=== PATIENT | female | born 1940 | race Caucasian/White ===

== ENCOUNTER 2017-03-30 12:44 | Emergency (ER) | payer MEDICARE, OTHER ==
[~2017-03-30] VITALS: Ht 162.6 cm; Wt 56.9 kg
[2017-03-30] MEDS ORDERED: SING5CHW23 PO (13:03)
[2017-03-30] MEDS ORDERED: METO-398 PO (13:03)
[2017-03-30] MEDS ORDERED: NIFE1TAB PO (13:03)
[2017-03-30] MEDS ORDERED: XARE20TA PO (13:03)
[2017-03-30] MEDS ORDERED: FURO40TA2 PO (13:03)
[2017-03-30] MEDS ORDERED: FAMO20TA PO (13:03)
[2017-03-30] MEDS ORDERED: LISI40TAB PO (13:03)
[2017-03-30] MEDS ORDERED: METF500T13 PO (13:03)
[2017-03-30] MEDS ORDERED: LEVO25TA5 PO (13:03)
[2017-03-30] MEDS ORDERED: GABA-283 PO (13:03)
[2017-03-30] MEDS ORDERED: NITR0.4D TD (13:05)
[2017-03-30] MEDS ORDERED: ECOT81TA5 PO (13:05)
[2017-03-30] MEDS ORDERED: PRAV40TA2 PO (13:05)
[2017-03-30 13:55] LABS: VENOUS BASE EXCESS 1.9 (-2.0-2.0); VENOUS O2 SATURATION 89.7 % (60.0-80.0); VENOUS PARTIAL PRESSURE O2 58.4 mmHg (30.0-50.0); VENOUS STANDARD HCO3 25.9 MEQ/L; VENOUS TOTAL CO2 29.4 MEQ/L (24.0-28.0)
[2017-03-30 14:03] LABS: BASO % 0.4 % (0.0-1.0); EOS # 0.2 K/mm3 (0.0-0.50); EOS % 2.9 % (0.0-3.0); LARGE UNSTAINED CELL # 0.1 K/mm3 (0.0-0.4); LARGE UNSTAINED CELL % 2.7 % (0.0-4.0); LYMPH # 2.2 K/mm3 (1.5-4.5); LYMPH % 38.9 % (24.0-44.0); MEAN CORPUSCULAR HEMOGLOBIN 31.4 pg (27.0-33.0); MEAN CORPUSCULAR HGB CONC 34.6 g/dl (32.0-36.5); MEAN CORPUSCULAR VOLUME 90.7 fl (80.0-96.0); MONO # 0.4 K/mm3 (0.0-0.8); MONO % 7.9 % (0.0-5.0); NEUTROPHILS # 2.5 K/mm3 (1.8-7.7); NEUTROPHILS % 47.2 % (36.0-66.0); PLATELET COUNT, AUTOMATED 278 k/mm3 (150-450); RED CELL DISTRIBUTION WIDTH 12.4 % (11.5-14.5); WHITE BLOOD COUNT 5.2 K/mm3 (4.0-10.0)
[2017-03-30 14:03] LABS: INR 1.23
[2017-03-30 14:17] LABS: ALBUMIN 3.9 GM/DL (3.2-5.2); ALBUMIN/GLOBULIN RATIO 1.05 (1.00-1.93); ALKALINE PHOSPHATASE 75 U/L (45-117); ALT/SGPT 15 U/L (12-78); ANION GAP 8 MEQ/L (8-16); AST/SGOT 16 U/L (15-37); BILIRUBIN,DIRECT 0.2 MG/DL (0.0-0.2); BILIRUBIN,TOTAL 0.8 MG/DL (0.2-1.0); BLOOD UREA NITROGEN 16 MG/DL (7-18); CARBON DIOXIDE LEVEL 31 MEQ/L (21-32); CHLORIDE LEVEL 102 MEQ/L (98-107); CREATININE FOR GFR 0.98 MG/DL (0.55-1.02); GLOMERULAR FILTRATION RATE 58.6 (>39); GLUCOSE, FASTING 95 MG/DL (83-110); POTASSIUM SERUM 3.7 MEQ/L (3.5-5.1); SODIUM LEVEL 141 MEQ/L (136-145); TOTAL PROTEIN 7.6 GM/DL (6.4-8.2)
--- NOTE | 2017-03-30 14:27 | REP ---
PA and lateral chest: There are no comparisons. Lung christensen are clear. Cardiac size is normal. There are sternotomy wires and there is a dual-chamber pacemaker. The loi, mediastinum, and bony thorax are unremarkable. Impression: There are no acute cardiopulmonary findings. Signed by Mikel Calderon MD 03/30/2017 02:19 P
[2017-03-30] MEDS ORDERED: GI COCKTAIL 50ML BTL(HYOSCYAMINE/MAALOX/LIDOCAINE VISCOUS)(1:3:1) PO ONE (15:00)
[2017-03-30] MEDS ORDERED: LEVS0.123 PO (16:01)
[2017-03-30 16:14] VITALS: BP 142/78
--- NOTE | 2017-03-31 07:34 | ECGEPIP ---
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
== END 2017-03-30 17:00 | disposition home or self-care (01) ==
LOC: M ED 14:23
DX: R07.89 Other chest pain (principal); R06.02 Shortness of breath; E11.9 Type 2 diabetes mellitus without complications; I10 Essential (primary) hypertension; E78.5 Hyperlipidemia, unspecified; E03.9 Hypothyroidism, unspecified; I25.2 Old myocardial infarction; Z95.0 Presence of cardiac pacemaker; Z95.1 Presence of aortocoronary bypass graft; Z79.899 Other long term (current) drug therapy; Z79.82 Long term (current) use of aspirin; Z79.01 Long term (current) use of anticoagulants; Z79.84 Long term (current) use of oral hypoglycemic drugs; Z88.1 Allergy status to other antibiotic agents; Z88.2 Allergy status to sulfonamides; Z88.5 Allergy status to narcotic agent; Z91.048 Other nonmedicinal substance allergy status

== ENCOUNTER 2018-04-26 16:38 | Emergency (ER) | payer MEDICARE, OTHER ==
[2018-04-26 17:36] LABS: BASO % 0.3 % (0.0-1.0); EOS # 0.2 10^3/uL (0.0-0.50); EOS % 3.3 % (0.0-3.0); HEMATOCRIT 35.6 % (36.0-47.0); HEMOGLOBIN 12.1 g/dl (12.0-15.5); IMMATURE GRANULOCYTE % 0.2 % (0-3.0); LYMPH # 2.5 10^3/uL (1.5-4.5); LYMPH % 39.1 % (24.0-44.0); MEAN CORPUSCULAR HEMOGLOBIN 31.1 pg (27.0-33.0); MEAN CORPUSCULAR VOLUME 91.5 fl (80.0-96.0); MONO # 0.7 10^3/uL (0.0-0.8); MONO % 10.9 % (0.0-5.0); NEUTROPHILS % 46.2 % (36.0-66.0); PLATELET COUNT, AUTOMATED 272 10^3/uL (150-450); RED BLOOD COUNT 3.89 10^6/uL (4.00-5.40); RED CELL DISTRIBUTION WIDTH 12.5 % (11.5-14.5); WHITE BLOOD COUNT 6.4 10^3/uL (4.0-10.0)
[2018-04-26 17:47] LABS: INR 1.31; PROTHROMBIN TIME 16.5 SECONDS (12.1-14.4)
[2018-04-26 17:48] LABS: PARTIAL THROMBOPLASTIN TIME 33.8 SECONDS (25.4-37.6)
[2018-04-26 17:50] LABS: ALBUMIN 3.3 GM/DL (3.2-5.2); ALBUMIN/GLOBULIN RATIO 0.75 (1.00-1.93); ALKALINE PHOSPHATASE 73 U/L (45-117); ALT/SGPT 24 U/L (12-78); ANION GAP 4 MEQ/L (8-16); AST/SGOT 56 U/L (7-37); BILIRUBIN,DIRECT < 0.1 MG/DL (0.0-0.2); BILIRUBIN,TOTAL 0.4 MG/DL (0.2-1.0); BLOOD UREA NITROGEN 16 MG/DL (7-18); C REACTIVE PROTEIN QUANTITATIV < 0.30 MG/DL (0.00-0.30); CALCIUM LEVEL 8.3 MG/DL (8.8-10.2); CARBON DIOXIDE LEVEL 30 MEQ/L (21-32); CHLORIDE LEVEL 104 MEQ/L (98-107); CPK CREATINE PHOSPHOKINASE 340 U/L (26-192); CREATININE FOR GFR 1.01 MG/DL (0.55-1.30); FREE T4 1.19 NG/DL (0.76-1.46); GLOMERULAR FILTRATION RATE 56.4 (>39); GLUCOSE, FASTING 118 MG/DL (70-100); POTASSIUM SERUM 4.6 MEQ/L (3.5-5.1); SODIUM LEVEL 138 MEQ/L (136-145); TOTAL PROTEIN 7.7 GM/DL (6.4-8.2); TROPONIN I < 0.02 NG/ML (< 0.10)
[2018-04-26 17:56] LABS: CK-MB VALUE MASS 2.6 NG/ML (<3.6); MB/CK RELATIVE INDEX 0.76 (< OR =4); NT-PRO BNP 829 PG/ML (<450); THYROID STIMULATING HORMONE 0.256 uIU/ML (0.358-3.740)
== END 2018-04-26 19:41 | disposition home or self-care (01) ==
LOC: M ED 16:38
DX: R07.89 Other chest pain (principal); I25.10 Atherosclerotic heart disease of native coronary artery without angina pectoris; E11.9 Type 2 diabetes mellitus without complications; J44.9 Chronic obstructive pulmonary disease, unspecified; M06.9 Rheumatoid arthritis, unspecified; E03.9 Hypothyroidism, unspecified; I69.351 Hemiplegia and hemiparesis following cerebral infarction affecting right dominant side; G62.9 Polyneuropathy, unspecified; M19.90 Unspecified osteoarthritis, unspecified site; Z95.1 Presence of aortocoronary bypass graft; Z95.0 Presence of cardiac pacemaker; Z88.2 Allergy status to sulfonamides; Z88.5 Allergy status to narcotic agent; Z88.8 Allergy status to other drugs, medicaments and biological substances; Z91.81 History of falling
CPT/HCPCS: 71250

== ENCOUNTER → 2019-05-02 | Outpatient (CLI) | payer MEDICARE, OTHER ==
[~2019-05-02] MED LIST: ECOT81TA5 PO; FAMO20TA PO; FURO40TA2 PO; GABA-845 PO; K-TA10TA2 PO; LEVO25TA5 PO; LEVS0.123 PO; LISI40TA PO; METF500T13 PO; METO200T28 PO; NIFE90TA20 PO; NITR0.4D10 TD; OMEP20CA4 PO; PRAV40TA2 PO; SING5CHW23 PO; XARE20TA PO
[2019-05-02 13:08] LABS: HEMATOCRIT 35.5 % (36.0-47.0); MEAN CORPUSCULAR HEMOGLOBIN 30.5 pg (27.0-33.0); MEAN CORPUSCULAR HGB CONC 33.8 g/dl (32.0-36.5); MEAN CORPUSCULAR VOLUME 90.1 fl (80.0-96.0); PLATELET COUNT, AUTOMATED 253 10^3/uL (150-450); RED BLOOD COUNT 3.94 10^6/uL (4.00-5.40); WHITE BLOOD COUNT 5.2 10^3/uL (4.0-10.0)
[2019-05-02 13:43] LABS: ALBUMIN 3.7 GM/DL (3.2-5.2); BILIRUBIN,TOTAL 0.6 MG/DL (0.2-1.0); CALCIUM LEVEL 9.1 MG/DL (8.8-10.2); CHOLESTEROL RISK RATIO 3.5 (<5); CREATININE FOR GFR 1.11 MG/DL (0.55-1.30); GLOMERULAR FILTRATION RATE 50.5 (>39); THYROID STIMULATING HORMONE 1.63 uIU/ML (0.358-3.740); TOTAL 25(OH) VITAMIN D 111.4 NG/ML (30.0-100.0); TOTAL PROTEIN 7.2 GM/DL (6.4-8.2)
== END ==
LOC: M LAB 12:01
PROVIDERS: ATTEND Family Medicine
DX: D64.9 Anemia, unspecified (principal); Z79.899 Other long term (current) drug therapy

== ENCOUNTER 2023-02-14 15:50 | Inpatient (IN) | payer MEDICARE ==
[~2023-02-14] VITALS: Ht 167.6 cm; Wt 64.1 kg
[~2023-02-14 15:50] MED LIST changes: +GABA-283 PO; -GABA-845 PO; -LISI40TA PO; +LISI40TA4 PO; +OMEP1CAP73 PO; -OMEP20CA4 PO
[2023-02-14] MEDS ORDERED: BACITRACIN OINTMENT 30GM TUBE TOP ONE (19:30)
[2023-02-14 19:34] LABS: BASO % 0.3 % (0.0-1.0); EOS # 0.1 10^3/uL (0.0-0.5); EOS % 2.1 % (0.0-3.0); HEMATOCRIT 34.8 % (36.0-47.0); HEMOGLOBIN 11.3 g/dl (12.0-15.5); LYMPH % 29.1 % (24.0-44.0); MEAN CORPUSCULAR HEMOGLOBIN 28.5 pg (27.0-33.0); MEAN CORPUSCULAR HGB CONC 32.5 g/dl (32.0-36.5); MEAN CORPUSCULAR VOLUME 87.7 fl (80.0-96.0); MONO # 0.6 10^3/uL (0.0-0.8); MONO % 9.4 % (2.0-8.0); NEUTROPHILS # 3.9 10^3/uL (1.5-8.5); NEUTROPHILS % 58.8 % (36.0-66.0); PLATELET COUNT, AUTOMATED 194 10^3/uL (150-450); RED BLOOD COUNT 3.97 10^6/uL (4.00-5.40); WHITE BLOOD COUNT 6.7 10^3/uL (4.0-10.0)
[2023-02-14 19:54] LABS: INR 1.66; PROTHROMBIN TIME 19.9 SECONDS (12.5-14.5)
[2023-02-14 19:55] LABS: PARTIAL THROMBOPLASTIN TIME 37.7 SECONDS (24.8-34.2)
[2023-02-14 20:07] LABS: CALCIUM LEVEL 8.2 MG/DL (8.3-10.6); CREATININE FOR GFR 1.51 MG/DL (0.55-1.30); POTASSIUM SERUM 3.9 MMOL/L (3.5-5.1)
[2023-02-14 21:52] LABS: RSV AMPLIFICATION NEGATIVE (NEGATIVE)
[2023-02-15] VITALS (8 sets, daily range): BP systolic 104–202; BP diastolic 51–90
[2023-02-15] MEDS ORDERED: amLODIPine 5 MG TAB PO ONE (02:25)
[2023-02-15] MEDS ORDERED: MOM 30ML SUSPENSION UDC PO PRN (02:35)
[2023-02-15] MEDS: ACETAMINOPHEN TAB 650MG DOSE (2X325MG) PO PRN ×3 (03:38→21:45)
[2023-02-15] MEDS ORDERED: GLUCAGON INJ 1MG VIAL SC PRN (04:35)
[2023-02-15] MEDS ORDERED: GLUCOSE 4GM CHEW TABLET PO PRN (04:35)
[2023-02-15] MEDS ORDERED: DEXTROSE 50% 50ML SYRINGE IV PRN (04:35)
[2023-02-15] MEDS ORDERED: LABETALOL 100MG/20ML VIAL IV PRN (05:05)
[2023-02-15 06:15] LABS: HEMATOCRIT 32.4 % (36.0-47.0); HEMOGLOBIN 10.4 g/dl (12.0-15.5); MEAN CORPUSCULAR HGB CONC 32.1 g/dl (32.0-36.5); MEAN CORPUSCULAR VOLUME 87.1 fl (80.0-96.0); PLATELET COUNT, AUTOMATED 185 10^3/uL (150-450); RED BLOOD COUNT 3.72 10^6/uL (4.00-5.40); WHITE BLOOD COUNT 6.4 10^3/uL (4.0-10.0)
[2023-02-15] MEDS: LEVOTHYROXINE 88MCG TABLET (0.088 MG) PO SCH (06:35)
[2023-02-15 06:44] LABS: CALCIUM LEVEL 8.7 MG/DL (8.3-10.6); CREATININE FOR GFR 1.33 MG/DL (0.55-1.30); GLOMERULAR FILTRATION RATE 40.6 (>32); MAGNESIUM LEVEL 1.9 MG/DL (1.8-2.4); POTASSIUM SERUM 3.9 MMOL/L (3.5-5.1)
[2023-02-15] MEDS ORDERED: RIVAROXABAN 10MG TAB (XARELTO) PO SCH (09:00)
[2023-02-15] MEDS ORDERED: amLODIPine 5 MG TAB PO SCH (09:00)
[2023-02-15] MEDS ORDERED: RIVAROXABAN 15MG TAB (XARELTO) PO SCH (09:00)
[2023-02-15] MEDS ORDERED: TAMSULOSIN 0.4 MG CAP PO SCH (09:00)
[2023-02-15] MEDS: INSULIN LISPRO (NovoLOG) PER UNIT SC SCH ×4 (09:19→20:04)
[2023-02-15] MEDS: ENTRESTO 49-51MG TABLET (SACUBITRIL/VALSARTAN) PO SCH ×2 (09:19→21:41)
[2023-02-15] MEDS: ASPIRIN 81MG ENTERIC TABLET PO SCH (09:19)
[2023-02-15] MEDS: GABAPENTIN 300 MG CAP PO SCH ×3 (09:19→21:41)
[2023-02-15] MEDS ORDERED: FURO20TA2 PO (14:09)
[2023-02-15] MEDS ORDERED: LEVO88TA24 PO (14:09)
[2023-02-15] MEDS ORDERED: ATOR40TA75 PO (14:09)
[2023-02-15] MEDS ORDERED: SPIR-10 PO (14:09)
[2023-02-15] MEDS ORDERED: ENTR1TAB7 PO (14:09)
[2023-02-15] MEDS ORDERED: PANT-23 PO (14:09)
[2023-02-15] MEDS ORDERED: XARE15TA PO (14:09)
[2023-02-15] MEDS ORDERED: GABA-282 PO (14:09)
[2023-02-15] MEDS ORDERED: ISOS1TAB35 PO (14:09)
[2023-02-15] MEDS ORDERED: MONT10TA97 PO (14:09)
[2023-02-15] MEDS ORDERED: FLOM0.4C39 PO (14:09)
[2023-02-15] MEDS ORDERED: RANO500T2 PO (14:09)
[2023-02-15] MEDS: SODIUM CHLORIDE NASAL 0.65% SPRAY BTL (OCEAN) PRN ×2 (15:01→16:57)
[2023-02-15] MEDS: guaiFENesin 200 MG TAB PO PRN (15:01)
[2023-02-15] MEDS: traMADol 50 MG TAB PO PRN ×2 (15:02→23:06)
[2023-02-15] MEDS ORDERED: NITR4TASL SL (15:17)
[2023-02-15] MEDS ORDERED: CYAN100050 PO (15:17)
[2023-02-15] MEDS ORDERED: POTA-298 PO (15:17)
[2023-02-15] MEDS ORDERED: FLON1SPR NARES (15:17)
[2023-02-15] MEDS ORDERED: VITA100093 PO (15:17)
[2023-02-15] MEDS ORDERED: ZINC220CA PO (15:17)
[2023-02-15] MEDS ORDERED: FLUTICASONE PROP 0.05% NASAL SPRAY 16 GM (FLONASE) NARES PRN (15:25)
[2023-02-15] MEDS ORDERED: TRAD5TAB PO (15:34)
[2023-02-15] MEDS ORDERED: GLIP5TAB PO (15:34)
[2023-02-15] MEDS ORDERED: HOME MED LIST COMPLETE! XX SCH (15:35)
[2023-02-15] MEDS: FUROSEMIDE 20 MG TAB PO SCH (16:56)
[2023-02-15] MEDS ORDERED: RANOLAZINE 500MG ER TAB PO SCH (21:00)
[2023-02-15] MEDS ORDERED: ISOSORBIDE MON. (IMDUR) 30MG XR TAB PO SCH (21:00)
[2023-02-15] MEDS: ATORVASTATIN 20 MG TAB PO SCH (21:41)
[2023-02-15] MEDS: MONTELUKAST 10 MG TAB PO SCH (21:41)
[2023-02-15] MEDS: PANTOPRAZOLE 40MG TAB (PROTONIX) PO SCH (21:41)
[2023-02-16] VITALS (18 sets, daily range): BP systolic 80–136; BP diastolic 44–66
[2023-02-16] MEDS: bisoproloL fumarate 5 MG TAB PO SCH ×3 (00:01→20:55)
[2023-02-16] MEDS: LEVOTHYROXINE 88MCG TABLET (0.088 MG) PO SCH (05:16)
[2023-02-16 08:06] LABS: BASO % 0.3 % (0.0-1.0); EOS # 0.1 10^3/uL (0.0-0.5); EOS % 1.8 % (0.0-3.0); HEMATOCRIT 30.7 % (36.0-47.0); HEMOGLOBIN 9.9 g/dl (12.0-15.5); LYMPH # 1.5 10^3/uL (1.5-5.0); LYMPH % 19.9 % (24.0-44.0); MEAN CORPUSCULAR HEMOGLOBIN 27.9 pg (27.0-33.0); MEAN CORPUSCULAR HGB CONC 32.2 g/dl (32.0-36.5); MEAN CORPUSCULAR VOLUME 86.5 fl (80.0-96.0); MONO # 0.7 10^3/uL (0.0-0.8); MONO % 9.5 % (2.0-8.0); NEUTROPHILS # 5.1 10^3/uL (1.5-8.5); NEUTROPHILS % 68.1 % (36.0-66.0); PLATELET COUNT, AUTOMATED 177 10^3/uL (150-450); RED BLOOD COUNT 3.55 10^6/uL (4.00-5.40); WHITE BLOOD COUNT 7.4 10^3/uL (4.0-10.0)
[2023-02-16 08:21] LABS: ALBUMIN 2.9 G/DL (3.2-5.2); BILIRUBIN,TOTAL 0.6 MG/DL (0.3-1.2); CALCIUM LEVEL 8.4 MG/DL (8.3-10.6); CREATININE FOR GFR 1.29 MG/DL (0.55-1.30); MAGNESIUM LEVEL 1.8 MG/DL (1.8-2.4); POTASSIUM SERUM 4.1 MMOL/L (3.5-5.1); TOTAL PROTEIN 5.2 G/DL (5.7-8.2)
[2023-02-16] MEDS: FUROSEMIDE 20 MG TAB PO SCH ×3 (09:00→17:31)
[2023-02-16] MEDS ORDERED: FLUBLOK(EGG FREE)(QUAD)INFLUENZA VACC 0.5ML SYRINGE 18YRS & OLDER IM.IMMUN ONE (09:00)
[2023-02-16] MEDS: SPIRONOLACTONE 25 MG TAB PO SCH (09:00)
[2023-02-16] MEDS ORDERED: METOPROLOL SUCC (TopROL XL) 100MG *XL* TAB PO SCH (09:00)
[2023-02-16] MEDS: INSULIN LISPRO (NovoLOG) PER UNIT SC SCH ×4 (09:49→20:55)
[2023-02-16] MEDS: ASPIRIN 81MG ENTERIC TABLET PO SCH (10:05)
[2023-02-16] MEDS: GABAPENTIN 300 MG CAP PO SCH ×3 (10:05→20:54)
[2023-02-16] MEDS: VITAMIN D 1,000 INTERNATIONAL UNITS TABLET PO SCH (10:05)
[2023-02-16] MEDS: AMIODARONE 200 MG TAB (PACERONE) PO SCH ×3 (10:06→20:55)
[2023-02-16] MEDS: PANTOPRAZOLE 40MG TAB (PROTONIX) PO SCH ×2 (10:06→20:54)
[2023-02-16] MEDS: traMADol 50 MG TAB PO PRN ×2 (12:25→21:37)
[2023-02-16] MEDS ORDERED: guaiFENesin 200 MG TAB PO PRN (18:55)
[2023-02-16] MEDS ORDERED: LEVALBUTEROL 1.25MG 0.5ML CONCENTRATE NEB INH PRN (18:55)
[2023-02-16] MEDS: LEVALBUTEROL 1.25MG 0.5ML CONCENTRATE NEB INH SCH (20:00)
[2023-02-16] MEDS: MONTELUKAST 10 MG TAB PO SCH (20:54)
[2023-02-16] MEDS: ATORVASTATIN 20 MG TAB PO SCH (20:54)
[2023-02-17] MEDS: LEVALBUTEROL 1.25MG 0.5ML CONCENTRATE NEB INH SCH ×2 (01:13→08:04)
[2023-02-17 03:51] VITALS: BP 136/65
[2023-02-17] MEDS: LEVOTHYROXINE 88MCG TABLET (0.088 MG) PO SCH (05:36)
[2023-02-17] MEDS: traMADol 50 MG TAB PO PRN ×2 (05:38→13:41)
[2023-02-17 06:42] LABS: BASO % 0.3 % (0.0-1.0); EOS # 0.4 10^3/uL (0.0-0.5); EOS % 5.5 % (0.0-3.0); HEMATOCRIT 32.4 % (36.0-47.0); HEMOGLOBIN 10.4 g/dl (12.0-15.5); LYMPH # 1.5 10^3/uL (1.5-5.0); LYMPH % 19.5 % (24.0-44.0); MEAN CORPUSCULAR HEMOGLOBIN 27.9 pg (27.0-33.0); MEAN CORPUSCULAR HGB CONC 32.1 g/dl (32.0-36.5); MEAN CORPUSCULAR VOLUME 86.9 fl (80.0-96.0); MONO # 0.8 10^3/uL (0.0-0.8); MONO % 10.8 % (2.0-8.0); NEUTROPHILS # 4.7 10^3/uL (1.5-8.5); NEUTROPHILS % 63.6 % (36.0-66.0); PLATELET COUNT, AUTOMATED 175 10^3/uL (150-450); RED BLOOD COUNT 3.73 10^6/uL (4.00-5.40); WHITE BLOOD COUNT 7.4 10^3/uL (4.0-10.0)
[2023-02-17 07:01] LABS: ALBUMIN 2.7 G/DL (3.2-5.2); ALKALINE PHOSPHATASE 76 U/L (46-116); ALT/SGPT < 9 U/L (7.0-40); AST/SGOT 12 U/L (<34); BILIRUBIN,TOTAL 0.7 MG/DL (0.3-1.2); BLOOD UREA NITROGEN 13 MG/DL (9-23); CALCIUM LEVEL 8.5 MG/DL (8.3-10.6); CARBON DIOXIDE LEVEL 30 MMOL/L (20-31); CHLORIDE LEVEL 102 MMOL/L (98-107); CREATININE FOR GFR 1.27 MG/DL (0.55-1.30); GLOMERULAR FILTRATION RATE 42.8 (>32); GLUCOSE, FASTING 137 MG/DL (74-106); MAGNESIUM LEVEL 1.6 MG/DL (1.8-2.4); POTASSIUM SERUM 3.9 MMOL/L (3.5-5.1); SODIUM LEVEL 138 MMOL/L (136-145); TOTAL PROTEIN 5.3 G/DL (5.7-8.2)
[2023-02-17 07:21] VITALS: BP 125/61
[2023-02-17] MEDS ORDERED: MAGNESIUM OXIDE 400MG TAB (MAG-OX) PO ONE (07:25)
[2023-02-17] MEDS: FUROSEMIDE 20 MG TAB PO SCH ×2 (09:00→17:00)
[2023-02-17] MEDS: SPIRONOLACTONE 25 MG TAB PO SCH (09:00)
[2023-02-17] MEDS: INSULIN LISPRO (NovoLOG) PER UNIT SC SCH ×4 (09:27→21:00)
[2023-02-17] MEDS: AMIODARONE 200 MG TAB (PACERONE) PO SCH ×3 (09:38→22:08)
[2023-02-17] MEDS: GABAPENTIN 300 MG CAP PO SCH ×3 (09:38→22:08)
[2023-02-17] MEDS: ACETAMINOPHEN TAB 650MG DOSE (2X325MG) PO PRN (09:39)
[2023-02-17] MEDS: ASPIRIN 81MG ENTERIC TABLET PO SCH (09:39)
[2023-02-17] MEDS: bisoproloL fumarate 5 MG TAB PO SCH ×2 (09:39→22:09)
[2023-02-17] MEDS: SODIUM CHLORIDE NASAL 0.65% SPRAY BTL (OCEAN) PRN (09:40)
[2023-02-17] MEDS: VITAMIN D 1,000 INTERNATIONAL UNITS TABLET PO SCH (09:40)
[2023-02-17] MEDS: guaiFENesin 200 MG TAB PO PRN (09:40)
[2023-02-17] MEDS: PANTOPRAZOLE 40MG TAB (PROTONIX) PO SCH ×2 (09:40→22:08)
[2023-02-17 11:41] VITALS: BP 130/61
[2023-02-17] MEDS ORDERED: LEVALBUTEROL 1.25MG/3ML NEB SOLN INH PRN (13:30)
[2023-02-17] MEDS: LEVALBUTEROL 1.25MG/3ML NEB SOLN INH SCH ×2 (13:46→20:23)
[2023-02-17 16:22] VITALS: BP 109/56
[2023-02-17 19:34] VITALS: BP 123/60
[2023-02-17] MEDS: ATORVASTATIN 20 MG TAB PO SCH (22:08)
[2023-02-17] MEDS: MONTELUKAST 10 MG TAB PO SCH (22:08)
[2023-02-17 23:48] VITALS: BP 129/62
[2023-02-18] MEDS: traMADol 50 MG TAB PO PRN ×3 (00:08→21:43)
[2023-02-18] MEDS: LEVALBUTEROL 1.25MG/3ML NEB SOLN INH SCH ×4 (02:30→20:09)
[2023-02-18 03:40] VITALS: BP 124/61
[2023-02-18] MEDS: LEVOTHYROXINE 88MCG TABLET (0.088 MG) PO SCH (05:39)
[2023-02-18 07:32] VITALS: BP 144/65
[2023-02-18 07:36] LABS: BASO % 0.3 % (0.0-1.0); EOS # 0.3 10^3/uL (0.0-0.5); EOS % 4.8 % (0.0-3.0); HEMATOCRIT 29.4 % (36.0-47.0); HEMOGLOBIN 9.6 g/dl (12.0-15.5); LYMPH # 1.6 10^3/uL (1.5-5.0); LYMPH % 23.3 % (24.0-44.0); MEAN CORPUSCULAR HEMOGLOBIN 28.8 pg (27.0-33.0); MEAN CORPUSCULAR HGB CONC 32.7 g/dl (32.0-36.5); MEAN CORPUSCULAR VOLUME 88.3 fl (80.0-96.0); MONO # 0.7 10^3/uL (0.0-0.8); MONO % 10.8 % (2.0-8.0); NEUTROPHILS % 60.4 % (36.0-66.0); PLATELET COUNT, AUTOMATED 153 10^3/uL (150-450); RED BLOOD COUNT 3.33 10^6/uL (4.00-5.40); WHITE BLOOD COUNT 6.7 10^3/uL (4.0-10.0)
[2023-02-18 07:37] LABS: ALBUMIN 2.7 G/DL (3.2-5.2); BILIRUBIN,TOTAL 0.6 MG/DL (0.3-1.2); CALCIUM LEVEL 8.3 MG/DL (8.3-10.6); CREATININE FOR GFR 1.28 MG/DL (0.55-1.30); GLOMERULAR FILTRATION RATE 42.4 (>32); MAGNESIUM LEVEL 1.7 MG/DL (1.8-2.4); POTASSIUM SERUM 3.9 MMOL/L (3.5-5.1); TOTAL PROTEIN 5.2 G/DL (5.7-8.2)
[2023-02-18] MEDS: INSULIN LISPRO (NovoLOG) PER UNIT SC SCH ×4 (08:11→20:41)
[2023-02-18] MEDS: GABAPENTIN 300 MG CAP PO SCH ×3 (08:12→20:46)
[2023-02-18] MEDS: FUROSEMIDE 20 MG TAB PO SCH ×2 (08:12→16:16)
[2023-02-18] MEDS: ASPIRIN 81MG ENTERIC TABLET PO SCH (08:12)
[2023-02-18] MEDS: SPIRONOLACTONE 25 MG TAB PO SCH (08:12)
[2023-02-18] MEDS: PANTOPRAZOLE 40MG TAB (PROTONIX) PO SCH ×2 (08:12→20:46)
[2023-02-18] MEDS: bisoproloL fumarate 5 MG TAB PO SCH ×2 (08:13→20:47)
[2023-02-18] MEDS: AMIODARONE 200 MG TAB (PACERONE) PO SCH ×3 (08:13→20:46)
[2023-02-18] MEDS: VITAMIN D 1,000 INTERNATIONAL UNITS TABLET PO SCH (08:13)
[2023-02-18] MEDS ORDERED: DOXYCYCLINE HYCLATE 100MG TABLET PO SCH (09:00)
[2023-02-18] MEDS ORDERED: FUROSEMIDE 20 MG TAB PO SCH (10:50)
[2023-02-18] MEDS ORDERED: MAGNESIUM OXIDE 400MG TAB (MAG-OX) PO ONE (10:50)
[2023-02-18 11:27] VITALS: BP 132/61
[2023-02-18] MEDS ORDERED: cefTRIAXone SOD 2 GM in D5W MINI-BAG PLUS 50 ML IV SCH (14:00)
[2023-02-18 16:00] VITALS: BP 127/60
[2023-02-18] MEDS: DOXYCYCLINE HYCLATE 100MG TABLET PO SCH (16:16)
[2023-02-18 19:50] VITALS: BP 143/65
[2023-02-18] MEDS: ATORVASTATIN 20 MG TAB PO SCH (20:46)
[2023-02-18] MEDS: ACETAMINOPHEN TAB 650MG DOSE (2X325MG) PO PRN (20:47)
[2023-02-18] MEDS: MONTELUKAST 10 MG TAB PO SCH (20:47)
[2023-02-18 21:15] VITALS: BP 138/58
[2023-02-18] MEDS: ONDANSETRON 4MG 2ML VIAL IV PRN (23:15)
[2023-02-19] MEDS: LEVALBUTEROL 1.25MG/3ML NEB SOLN INH SCH ×4 (02:38→20:27)
[2023-02-19] MEDS: LEVOTHYROXINE 88MCG TABLET (0.088 MG) PO SCH (05:35)
[2023-02-19 05:45] VITALS: BP_SYST 128; BP_SYST 163; BP_DIAS 66; BP_DIAS 80
[2023-02-19 06:31] LABS: BASO % 0.2 % (0.0-1.0); EOS # 0.3 10^3/uL (0.0-0.5); EOS % 5.1 % (0.0-3.0); HEMATOCRIT 29.8 % (36.0-47.0); HEMOGLOBIN 9.4 g/dl (12.0-15.5); LYMPH # 1.9 10^3/uL (1.5-5.0); LYMPH % 29.2 % (24.0-44.0); MEAN CORPUSCULAR HEMOGLOBIN 27.9 pg (27.0-33.0); MEAN CORPUSCULAR HGB CONC 31.5 g/dl (32.0-36.5); MEAN CORPUSCULAR VOLUME 88.4 fl (80.0-96.0); MONO # 0.7 10^3/uL (0.0-0.8); MONO % 10.2 % (2.0-8.0); NEUTROPHILS # 3.5 10^3/uL (1.5-8.5); NEUTROPHILS % 54.8 % (36.0-66.0); PLATELET COUNT, AUTOMATED 196 10^3/uL (150-450); RED BLOOD COUNT 3.37 10^6/uL (4.00-5.40); WHITE BLOOD COUNT 6.4 10^3/uL (4.0-10.0)
[2023-02-19 07:16] LABS: BILIRUBIN,TOTAL 0.5 MG/DL (0.3-1.2); CREATININE FOR GFR 1.24 MG/DL (0.55-1.30); MAGNESIUM LEVEL 1.9 MG/DL (1.8-2.4); POTASSIUM SERUM 4.6 MMOL/L (3.5-5.1); TOTAL PROTEIN 5.8 G/DL (5.7-8.2)
[2023-02-19] MEDS: GABAPENTIN 300 MG CAP PO SCH ×3 (08:02→20:40)
[2023-02-19] MEDS: INSULIN LISPRO (NovoLOG) PER UNIT SC SCH ×4 (08:02→20:38)
[2023-02-19] MEDS: bisoproloL fumarate 5 MG TAB PO SCH ×2 (08:02→20:40)
[2023-02-19] MEDS: FUROSEMIDE 20 MG TAB PO SCH ×2 (08:02→16:06)
[2023-02-19] MEDS: SPIRONOLACTONE 25 MG TAB PO SCH (08:03)
[2023-02-19] MEDS: traMADol 50 MG TAB PO PRN ×2 (08:03→16:07)
[2023-02-19] MEDS: PANTOPRAZOLE 40MG TAB (PROTONIX) PO SCH ×2 (08:03→20:41)
[2023-02-19] MEDS: VITAMIN D 1,000 INTERNATIONAL UNITS TABLET PO SCH (08:03)
[2023-02-19] MEDS: DOXYCYCLINE HYCLATE 100MG TABLET PO SCH (08:03)
[2023-02-19] MEDS: AMIODARONE 200 MG TAB (PACERONE) PO SCH ×3 (08:03→20:40)
[2023-02-19] MEDS: ASPIRIN 81MG ENTERIC TABLET PO SCH (08:03)
[2023-02-19] MEDS ORDERED: LEVALBUTEROL 1.25MG/3ML NEB SOLN INH PRN (10:00)
[2023-02-19 14:00] VITALS: BP 133/60
[2023-02-19] MEDS: ONDANSETRON 4MG 2ML VIAL IV PRN (14:44)
[2023-02-19] MEDS: ONDANSETRON 4MG ORAL DISINTEGRATING TAB PO PRN (15:21)
[2023-02-19 16:06] VITALS: BP 142/64
[2023-02-19] MEDS ORDERED: ONDANSETRON 4MG ORAL DISINTEGRATING TAB PO ONE (16:50)
[2023-02-19] MEDS ORDERED: PILL CUTTER 1 EACH XX PRN (16:55)
[2023-02-19] MEDS: MONTELUKAST 10 MG TAB PO SCH (20:39)
[2023-02-19] MEDS: ATORVASTATIN 20 MG TAB PO SCH (20:40)
[2023-02-20] MEDS: LEVALBUTEROL 1.25MG/3ML NEB SOLN INH SCH ×4 (01:51→19:57)
[2023-02-20 05:56] VITALS: BP 136/57
[2023-02-20] MEDS: LEVOTHYROXINE 88MCG TABLET (0.088 MG) PO SCH (06:23)
[2023-02-20] MEDS: traMADol 50 MG TAB PO PRN ×2 (06:28→21:11)
[2023-02-20] MEDS: INSULIN LISPRO (NovoLOG) PER UNIT SC SCH ×4 (07:30→21:00)
[2023-02-20] MEDS: ACETAMINOPHEN TAB 650MG DOSE (2X325MG) PO PRN (09:40)
[2023-02-20] MEDS: PANTOPRAZOLE 40MG TAB (PROTONIX) PO SCH ×2 (09:40→21:16)
[2023-02-20] MEDS: bisoproloL fumarate 5 MG TAB PO SCH ×2 (09:40→21:10)
[2023-02-20] MEDS: ASPIRIN 81MG ENTERIC TABLET PO SCH (09:40)
[2023-02-20] MEDS: GABAPENTIN 300 MG CAP PO SCH ×3 (09:40→21:12)
[2023-02-20] MEDS: SPIRONOLACTONE 25 MG TAB PO SCH (09:41)
[2023-02-20] MEDS: VITAMIN D 1,000 INTERNATIONAL UNITS TABLET PO SCH (09:41)
[2023-02-20] MEDS: FUROSEMIDE 20 MG TAB PO SCH ×2 (09:41→16:16)
[2023-02-20] MEDS: AMIODARONE 200 MG TAB (PACERONE) PO SCH ×3 (09:41→21:10)
[2023-02-20] MEDS: ONDANSETRON 4MG ORAL DISINTEGRATING TAB PO PRN (11:33)
[2023-02-20] MEDS: MONTELUKAST 10 MG TAB PO SCH (21:10)
[2023-02-20] MEDS: ATORVASTATIN 20 MG TAB PO SCH (21:12)
[2023-02-21] MEDS: LEVALBUTEROL 1.25MG/3ML NEB SOLN INH SCH ×3 (02:59→13:37)
[2023-02-21 04:53] VITALS: BP 125/66
[2023-02-21] MEDS: LEVOTHYROXINE 88MCG TABLET (0.088 MG) PO SCH (05:15)
[2023-02-21 05:18] VITALS: BP 125/66
[2023-02-21] MEDS: traMADol 50 MG TAB PO PRN ×2 (05:18→14:05)
[2023-02-21] MEDS: INSULIN LISPRO (NovoLOG) PER UNIT SC SCH ×2 (09:25→13:14)
[2023-02-21] MEDS: PANTOPRAZOLE 40MG TAB (PROTONIX) PO SCH (09:26)
[2023-02-21] MEDS: SPIRONOLACTONE 25 MG TAB PO SCH (09:26)
[2023-02-21 09:27] VITALS: BP 137/53
[2023-02-21] MEDS: ASPIRIN 81MG ENTERIC TABLET PO SCH (09:27)
[2023-02-21] MEDS: AMIODARONE 200 MG TAB (PACERONE) PO SCH (09:27)
[2023-02-21] MEDS: VITAMIN D 1,000 INTERNATIONAL UNITS TABLET PO SCH (09:27)
[2023-02-21] MEDS: GABAPENTIN 300 MG CAP PO SCH (09:27)
[2023-02-21] MEDS: bisoproloL fumarate 5 MG TAB PO SCH (09:27)
[2023-02-21] MEDS: FUROSEMIDE 20 MG TAB PO SCH (09:27)
[2023-02-21] MEDS: guaiFENesin 200 MG TAB PO PRN (09:34)
[2023-02-21] MEDS ORDERED: GUAI20TA PO (13:13)
[2023-02-21] MEDS: ACETAMINOPHEN TAB 650MG DOSE (2X325MG) PO PRN (14:03)
[2023-02-21] MEDS ORDERED: ACET1TAB55 PO (14:24)
[2023-02-21] MEDS ORDERED: TRAM50TA2 PO (14:24)
== END 2023-02-21 14:56 | disposition home or self-care (01) | DRG 312 ==
LOC: M ED 15:50 → ENRESERV 22:12 → M ED INP 02-15 02:32 → ENRESERV 02-15 03:51 → M PCU 02-15 04:40 → M MSPAV 02-18 21:13
PROVIDERS: ADMIT Internal Medicine; ATTEND Family Medicine
PROC: B246ZZZ Ultrasonography of Right and Left Heart (ICD-10-PCS; principal; 2023-02-15)
DX: I95.1 Orthostatic hypotension (principal); J12.9 Viral pneumonia, unspecified; I50.32 Chronic diastolic (congestive) heart failure; N17.9 Acute kidney failure, unspecified; I38 Endocarditis, valve unspecified; J98.11 Atelectasis; I25.5 Ischemic cardiomyopathy; I16.0 Hypertensive urgency; I25.10 Atherosclerotic heart disease of native coronary artery without angina pectoris; E78.5 Hyperlipidemia, unspecified; J98.4 Other disorders of lung; E11.42 Type 2 diabetes mellitus with diabetic polyneuropathy; I48.0 Paroxysmal atrial fibrillation; E03.9 Hypothyroidism, unspecified; B34.8 Other viral infections of unspecified site; I11.0 Hypertensive heart disease with heart failure; M54.9 Dorsalgia, unspecified; G89.29 Other chronic pain; R29.6 Repeated falls; Z95.5 Presence of coronary angioplasty implant and graft; Z95.2 Presence of prosthetic heart valve; Z95.810 Presence of automatic (implantable) cardiac defibrillator; Z86.718 Personal history of other venous thrombosis and embolism; Z90.49 Acquired absence of other specified parts of digestive tract; Z90.79 Acquired absence of other genital organ(s); Z79.84 Long term (current) use of oral hypoglycemic drugs; Z79.890 Hormone replacement therapy; Z79.82 Long term (current) use of aspirin; Z79.899 Other long term (current) drug therapy; Z88.2 Allergy status to sulfonamides; Z88.5 Allergy status to narcotic agent; Z88.8 Allergy status to other drugs, medicaments and biological substances; Z20.822 Contact with and (suspected) exposure to COVID-19; K21.9 Gastro-esophageal reflux disease without esophagitis

== ENCOUNTER → 2023-02-26 | Outpatient (CLI) | payer MEDICAID, MEDICARE ==
[~2023-02-26] MED LIST changes: +ACET1TAB55 PO; +ATOR40TA75 PO; +CYAN100050 PO; +ENTR1TAB7 PO; +FLOM0.4C39 PO; +FLON1SPR NARES; +FURO20TA2 PO; +GABA-282 PO; +GLIP5TAB PO; +GUAI20TA PO; +ISOS1TAB35 PO; +LEVO88TA24 PO; +MONT10TA97 PO; +NITR4TASL SL; +PANT-23 PO; +POTA-298 PO; +RANO500T2 PO; +SPIR-10 PO; +TRAD5TAB PO; +TRAM50TA2 PO; +VITA100093 PO; +XARE15TA PO; +ZINC220CA PO
== END ==
LOC: M PLALAB 10:57
PROVIDERS: ATTEND Student in an Organized Health Care Education/Training Program
DX: Z86.39 Personal history of other endocrine, nutritional and metabolic disease (principal)

== ENCOUNTER 2023-04-07 14:04 | Inpatient (IN) | payer MEDICARE ==
[~2023-04-07] VITALS: Ht 162.6 cm; Wt 64.0 kg
[~2023-04-07 14:04] MED LIST changes: +CYAN-1 PO; -CYAN100050 PO; -K-TA10TA2 PO; -NIFE90TA20 PO; +NIFE90TA46 PO; +POTA-165 PO
[2023-04-07] MEDS ORDERED: ASPIRIN 81MG CHEW TABLET PO ONE (15:30)
[2023-04-07 16:08] LABS: BASO % 0.6 % (0.0-1.0); EOS # 0.2 10^3/uL (0.0-0.5); EOS % 2.8 % (0.0-3.0); HEMATOCRIT 32.4 % (36.0-47.0); HEMOGLOBIN 10.1 g/dl (12.0-15.5); LYMPH # 1.6 10^3/uL (1.5-5.0); LYMPH % 28.9 % (24.0-44.0); MEAN CORPUSCULAR HEMOGLOBIN 27.4 pg (27.0-33.0); MEAN CORPUSCULAR HGB CONC 31.2 g/dl (32.0-36.5); MEAN CORPUSCULAR VOLUME 87.8 fl (80.0-96.0); MONO # 0.6 10^3/uL (0.0-0.8); MONO % 10.7 % (2.0-8.0); NEUTROPHILS # 3.1 10^3/uL (1.5-8.5); NEUTROPHILS % 56.6 % (36.0-66.0); PLATELET COUNT, AUTOMATED 219 10^3/uL (150-450); RED BLOOD COUNT 3.69 10^6/uL (4.00-5.40); WHITE BLOOD COUNT 5.4 10^3/uL (4.0-10.0)
[2023-04-07 16:27] LABS: INR 1.49; PROTHROMBIN TIME 18.3 SECONDS (12.5-14.5)
[2023-04-07 16:28] LABS: PARTIAL THROMBOPLASTIN TIME 35.6 SECONDS (24.8-34.2)
[2023-04-07 16:31] LABS: BLOOD UREA NITROGEN 20 MG/DL (9-23); CARBON DIOXIDE LEVEL 28 MMOL/L (20-31); CHLORIDE LEVEL 105 MMOL/L (98-107); CK-MB VALUE MASS < 1.0 NG/ML (<3.6); CREATININE FOR GFR 1.69 MG/DL (0.55-1.30); GLOMERULAR FILTRATION RATE 30.8 (>32); GLUCOSE, FASTING 164 MG/DL (74-106); SODIUM LEVEL 139 MMOL/L (136-145)
[2023-04-07 16:36] LABS: CPK CREATINE PHOSPHOKINASE 50 U/L (34-145)
[2023-04-07 17:01] LABS: RSV AMPLIFICATION NEGATIVE (NEGATIVE)
[2023-04-07] MEDS ORDERED: MED REC IN PROGRESS XX SCH (17:25)
[2023-04-07 20:00] VITALS: BP 164/77; TEMP 97.9; TEMP 98.1; O2SAT 93
[2023-04-07 20:37] LABS: CK-MB VALUE MASS 1.2 NG/ML (<3.6); HEMOGLOBIN A1c 7.1 % (4.0-6.0)
[2023-04-07 20:40] LABS: MB/CK RELATIVE INDEX 3.52 (< OR =4)
[2023-04-07] MEDS: INSULIN LISPRO (NovoLOG) PER UNIT SC SCH (21:00)
[2023-04-07 23:52] VITALS: BP 143/67; TEMP 96.7; O2SAT 98
[2023-04-08] VITALS (10 sets, daily range): BP systolic 101–150; BP diastolic 53–69; TEMP 96.9–98.3; O2SAT 95–98
[2023-04-08] MEDS ORDERED: LORA-674 PO (00:32)
[2023-04-08] MEDS ORDERED: ONDA4TAB6 PO (00:32)
[2023-04-08] MEDS ORDERED: TRAM50TA2 PO (00:32)
[2023-04-08] MEDS ORDERED: AMLO1TAB24 PO (00:32)
[2023-04-08] MEDS ORDERED: ALBU2.5V10 INH (00:32)
[2023-04-08] MEDS ORDERED: XARE15TA PO (00:32)
[2023-04-08] MEDS ORDERED: SYMB16INH INH (00:32)
[2023-04-08] MEDS ORDERED: VITMTA PO (00:32)
[2023-04-08] MEDS ORDERED: ANOR1AER INH (00:32)
[2023-04-08] MEDS ORDERED: ALBU8.5H INH (00:32)
[2023-04-08] MEDS ORDERED: HOME MED LIST COMPLETE! XX SCH (00:35)
[2023-04-08] MEDS ORDERED: FLUTICASONE PROP 0.05% NASAL SPRAY 16 GM (FLONASE) NARES PRN (02:15)
[2023-04-08] MEDS ORDERED: ALBUTEROL SULFATE 2.5MG/0.5ML INH NEB SOLN INH PRN (02:15)
[2023-04-08 06:33] LABS: HEMATOCRIT 31.5 % (36.0-47.0); HEMOGLOBIN 10.2 g/dl (12.0-15.5); MEAN CORPUSCULAR HEMOGLOBIN 27.8 pg (27.0-33.0); MEAN CORPUSCULAR HGB CONC 32.4 g/dl (32.0-36.5); MEAN CORPUSCULAR VOLUME 85.8 fl (80.0-96.0); PLATELET COUNT, AUTOMATED 224 10^3/uL (150-450); RED BLOOD COUNT 3.67 10^6/uL (4.00-5.40); WHITE BLOOD COUNT 5.2 10^3/uL (4.0-10.0)
[2023-04-08] MEDS: LEVOTHYROXINE 88MCG TABLET (0.088 MG) PO SCH (06:53)
[2023-04-08 06:58] LABS: CALCIUM LEVEL 9.1 MG/DL (8.3-10.6); CHOLESTEROL RISK RATIO 2.37 (<5); CREATININE FOR GFR 1.31 MG/DL (0.55-1.30); GLOMERULAR FILTRATION RATE 41.3 (>32); HDL CHOLESTEROL 57.7 MG/DL (>40); LDL CHOLESTEROL 57.9 MG/DL (<100); NON-HDL-C 79.3 MG/DL; POTASSIUM SERUM 4.1 MMOL/L (3.5-5.1)
[2023-04-08] MEDS: INSULIN LISPRO (NovoLOG) PER UNIT SC SCH ×4 (07:30→20:32)
[2023-04-08] MEDS ORDERED: POTASSIUM CHLORIDE 10MEQ SR TABLET PO SCH (09:00)
[2023-04-08] MEDS: NITROGLYCERIN 0.4MG SUBL TABLET SL PRN (09:45)
[2023-04-08] MEDS ORDERED: MAALOX 30 ML SUSP *UDC PO ONE (09:55)
[2023-04-08] MEDS: ONDANSETRON 4MG 2ML VIAL IV SCH ×3 (09:59→21:43)
[2023-04-08] MEDS: ASPIRIN 81MG ENTERIC TABLET PO SCH (10:18)
[2023-04-08] MEDS: ACETAMINOPHEN TAB 650MG DOSE (2X325MG) PO PRN ×2 (10:19→21:18)
[2023-04-08] MEDS: TAMSULOSIN 0.4 MG CAP PO SCH (10:19)
[2023-04-08] MEDS: ISOSORBIDE MON. (IMDUR) 30MG XR TAB PO SCH ×2 (10:19→20:36)
[2023-04-08] MEDS: GABAPENTIN 300 MG CAP PO SCH ×3 (10:20→20:35)
[2023-04-08] MEDS: RANOLAZINE 500MG ER TAB PO SCH ×2 (10:20→20:35)
[2023-04-08] MEDS: METOPROLOL SUCC (TopROL XL) 100MG *XL* TAB PO SCH (10:20)
[2023-04-08] MEDS: PANTOPRAZOLE 40MG TAB (PROTONIX) PO SCH ×2 (10:20→20:35)
[2023-04-08] MEDS: TIOTROPIUM INHALER/CAPSULE (SPIRIVA) INH SCH ×2 (11:20→12:45)
[2023-04-08] MEDS: SYMBICORT 160/4.5MCG INHALER 6GM INH SCH ×2 (11:20→19:36)
[2023-04-08] MEDS: MONTELUKAST 10 MG TAB PO SCH (20:35)
[2023-04-08] MEDS: LORATADINE 10 MG TAB PO SCH (20:35)
[2023-04-08] MEDS: RIVAROXABAN 15MG TAB (XARELTO) PO SCH (20:35)
[2023-04-08] MEDS: ATORVASTATIN 20 MG TAB PO SCH (20:35)
[2023-04-09] VITALS (20 sets, daily range): BP systolic 100–176; BP diastolic 52–98; TEMP 96.7–98.5; O2SAT 93–99
[2023-04-09] MEDS: ONDANSETRON 4MG 2ML VIAL IV SCH ×4 (03:30→21:25)
[2023-04-09] MEDS: LEVOTHYROXINE 88MCG TABLET (0.088 MG) PO SCH (05:18)
[2023-04-09] MEDS ORDERED: diphenhydrAMINE 50MG/ML VIAL IV ONE (05:50)
[2023-04-09 06:12] LABS: BASO % 0.4 % (0.0-1.0); EOS # 0.2 10^3/uL (0.0-0.5); EOS % 3.5 % (0.0-3.0); HEMATOCRIT 28.1 % (36.0-47.0); HEMOGLOBIN 8.9 g/dl (12.0-15.5); LYMPH % 40.2 % (24.0-44.0); MEAN CORPUSCULAR HEMOGLOBIN 27.2 pg (27.0-33.0); MEAN CORPUSCULAR HGB CONC 31.7 g/dl (32.0-36.5); MEAN CORPUSCULAR VOLUME 85.9 fl (80.0-96.0); MONO # 0.5 10^3/uL (0.0-0.8); MONO % 10.1 % (2.0-8.0); NEUTROPHILS # 2.2 10^3/uL (1.5-8.5); NEUTROPHILS % 45.4 % (36.0-66.0); PLATELET COUNT, AUTOMATED 197 10^3/uL (150-450); RED BLOOD COUNT 3.27 10^6/uL (4.00-5.40); WHITE BLOOD COUNT 4.9 10^3/uL (4.0-10.0)
[2023-04-09 06:36] LABS: CK-MB VALUE MASS < 1.0 NG/ML (<3.6)
[2023-04-09 06:38] LABS: BLOOD UREA NITROGEN 23 MG/DL (9-23); CALCIUM LEVEL 8.3 MG/DL (8.3-10.6); CARBON DIOXIDE LEVEL 29 MMOL/L (20-31); CHLORIDE LEVEL 104 MMOL/L (98-107); CPK CREATINE PHOSPHOKINASE 30 U/L (34-145); CREATININE FOR GFR 1.28 MG/DL (0.55-1.30); GLOMERULAR FILTRATION RATE 42.4 (>32); GLUCOSE, FASTING 125 MG/DL (74-106); MB/CK RELATIVE INDEX 3.33 (< OR =4); POTASSIUM SERUM 4.3 MMOL/L (3.5-5.1); SODIUM LEVEL 138 MMOL/L (136-145)
[2023-04-09] MEDS: ACETAMINOPHEN TAB 650MG DOSE (2X325MG) PO PRN (06:48)
[2023-04-09] MEDS: SYMBICORT 160/4.5MCG INHALER 6GM INH SCH ×2 (07:12→19:56)
[2023-04-09] MEDS: TIOTROPIUM INHALER/CAPSULE (SPIRIVA) INH SCH (07:12)
[2023-04-09] MEDS: GABAPENTIN 300 MG CAP PO SCH ×3 (08:17→20:16)
[2023-04-09] MEDS: TAMSULOSIN 0.4 MG CAP PO SCH (08:17)
[2023-04-09] MEDS: ASPIRIN 81MG ENTERIC TABLET PO SCH (08:18)
[2023-04-09] MEDS: PANTOPRAZOLE 40MG TAB (PROTONIX) PO SCH ×2 (08:18→20:21)
[2023-04-09] MEDS: ISOSORBIDE MON. (IMDUR) 30MG XR TAB PO SCH ×2 (08:18→20:15)
[2023-04-09] MEDS: METOPROLOL SUCC (TopROL XL) 100MG *XL* TAB PO SCH (08:18)
[2023-04-09] MEDS: RANOLAZINE 500MG ER TAB PO SCH ×2 (08:18→20:15)
[2023-04-09] MEDS: INSULIN LISPRO (NovoLOG) PER UNIT SC SCH ×4 (08:19→20:18)
[2023-04-09 11:54] LABS: PERCENT SATURATION 11.3 % (13.2-45.0)
[2023-04-09 11:57] LABS: FERRITIN 13.1 NG/ML (7.3-270.7); FOLATE 13.47 NG/ML (>5.4)
[2023-04-09] MEDS ORDERED: NS 250 ML IV ONE (12:35)
[2023-04-09] MEDS: ATORVASTATIN 20 MG TAB PO SCH (20:15)
[2023-04-09] MEDS: MONTELUKAST 10 MG TAB PO SCH (20:16)
[2023-04-09] MEDS: RIVAROXABAN 15MG TAB (XARELTO) PO SCH (20:16)
[2023-04-09] MEDS: LORATADINE 10 MG TAB PO SCH (20:17)
[2023-04-10] VITALS (11 sets, daily range): BP systolic 110–166; BP diastolic 55–74; TEMP 96.7–98.2; O2SAT 94–100
[2023-04-10] MEDS: ONDANSETRON 4MG 2ML VIAL IV SCH ×4 (03:35→22:00)
[2023-04-10 05:10] LABS: BASO % 0.2 % (0.0-1.0); EOS # 0.3 10^3/uL (0.0-0.5); EOS % 4.7 % (0.0-3.0); HEMATOCRIT 26.6 % (36.0-47.0); HEMOGLOBIN 8.4 g/dl (12.0-15.5); LYMPH # 1.8 10^3/uL (1.5-5.0); LYMPH % 33.5 % (24.0-44.0); MEAN CORPUSCULAR HEMOGLOBIN 27.3 pg (27.0-33.0); MEAN CORPUSCULAR HGB CONC 31.6 g/dl (32.0-36.5); MEAN CORPUSCULAR VOLUME 86.4 fl (80.0-96.0); MONO # 0.5 10^3/uL (0.0-0.8); NEUTROPHILS # 2.7 10^3/uL (1.5-8.5); PLATELET COUNT, AUTOMATED 181 10^3/uL (150-450); RED BLOOD COUNT 3.08 10^6/uL (4.00-5.40); WHITE BLOOD COUNT 5.3 10^3/uL (4.0-10.0)
[2023-04-10] MEDS: LEVOTHYROXINE 88MCG TABLET (0.088 MG) PO SCH (05:49)
[2023-04-10 05:52] LABS: CREATININE FOR GFR 1.29 MG/DL (0.55-1.30); POTASSIUM SERUM 4.7 MMOL/L (3.5-5.1)
[2023-04-10] MEDS: INSULIN LISPRO (NovoLOG) PER UNIT SC SCH ×4 (07:30→21:00)
[2023-04-10] MEDS: SYMBICORT 160/4.5MCG INHALER 6GM INH SCH ×2 (08:40→19:13)
[2023-04-10] MEDS: TIOTROPIUM INHALER/CAPSULE (SPIRIVA) INH SCH (08:40)
[2023-04-10] MEDS: TAMSULOSIN 0.4 MG CAP PO SCH (09:29)
[2023-04-10] MEDS: ISOSORBIDE MON. (IMDUR) 30MG XR TAB PO SCH ×2 (09:29→22:01)
[2023-04-10] MEDS: RANOLAZINE 500MG ER TAB PO SCH ×2 (09:29→22:00)
[2023-04-10] MEDS: METOPROLOL SUCC (TopROL XL) 100MG *XL* TAB PO SCH (09:29)
[2023-04-10] MEDS: ASPIRIN 81MG ENTERIC TABLET PO SCH (09:29)
[2023-04-10] MEDS: GABAPENTIN 300 MG CAP PO SCH ×3 (09:29→22:01)
[2023-04-10] MEDS: PANTOPRAZOLE 40MG TAB (PROTONIX) PO SCH ×2 (09:29→22:00)
[2023-04-10] MEDS: traMADol 50 MG TAB PO PRN ×2 (09:41→22:02)
[2023-04-10] MEDS: ENTRESTO 24-26MG TABLET (SACUBITRIL/VALSARTAN) PO SCH ×2 (12:59→22:00)
[2023-04-10] MEDS ORDERED: FERRIC CARBOXYMALTOSE INJ 750 MG, VIAL MATE ADAPTER 1 EACH in NS 250 ML IV ONE (13:00)
[2023-04-10] MEDS: MONTELUKAST 10 MG TAB PO SCH (22:00)
[2023-04-10] MEDS: ATORVASTATIN 20 MG TAB PO SCH (22:00)
[2023-04-10] MEDS: LORATADINE 10 MG TAB PO SCH (22:00)
[2023-04-10] MEDS: RIVAROXABAN 15MG TAB (XARELTO) PO SCH (22:01)
[2023-04-11] MEDS: ONDANSETRON 4MG 2ML VIAL IV SCH ×4 (03:53→22:35)
[2023-04-11] MEDS: ACETAMINOPHEN TAB 650MG DOSE (2X325MG) PO PRN (03:53)
[2023-04-11 05:32] VITALS: BP 136/85; TEMP 97.7; O2SAT 96
[2023-04-11] MEDS: LEVOTHYROXINE 88MCG TABLET (0.088 MG) PO SCH (06:05)
[2023-04-11 06:48] LABS: BASO % 0.3 % (0.0-1.0); EOS # 0.3 10^3/uL (0.0-0.5); EOS % 3.5 % (0.0-3.0); HEMOGLOBIN 9.5 g/dl (12.0-15.5); LYMPH # 1.5 10^3/uL (1.5-5.0); LYMPH % 21.1 % (24.0-44.0); MEAN CORPUSCULAR HEMOGLOBIN 27.6 pg (27.0-33.0); MEAN CORPUSCULAR HGB CONC 31.7 g/dl (32.0-36.5); MEAN CORPUSCULAR VOLUME 87.2 fl (80.0-96.0); MONO # 0.8 10^3/uL (0.0-0.8); MONO % 10.6 % (2.0-8.0); NEUTROPHILS # 4.5 10^3/uL (1.5-8.5); NEUTROPHILS % 63.8 % (36.0-66.0); PLATELET COUNT, AUTOMATED 187 10^3/uL (150-450); RED BLOOD COUNT 3.44 10^6/uL (4.00-5.40); WHITE BLOOD COUNT 7.1 10^3/uL (4.0-10.0)
[2023-04-11 07:11] LABS: CALCIUM LEVEL 8.5 MG/DL (8.3-10.6); CREATININE FOR GFR 1.16 MG/DL (0.55-1.30); GLOMERULAR FILTRATION RATE 47.5 (>32); POTASSIUM SERUM 4.6 MMOL/L (3.5-5.1)
[2023-04-11] MEDS: SYMBICORT 160/4.5MCG INHALER 6GM INH SCH ×2 (07:57→20:07)
[2023-04-11] MEDS: TIOTROPIUM INHALER/CAPSULE (SPIRIVA) INH SCH (07:57)
[2023-04-11] MEDS: TAMSULOSIN 0.4 MG CAP PO SCH (08:21)
[2023-04-11] MEDS: ASPIRIN 81MG ENTERIC TABLET PO SCH (08:21)
[2023-04-11] MEDS: ENTRESTO 24-26MG TABLET (SACUBITRIL/VALSARTAN) PO SCH ×2 (08:21→21:00)
[2023-04-11] MEDS: INSULIN LISPRO (NovoLOG) PER UNIT SC SCH ×4 (08:21→22:06)
[2023-04-11] MEDS: PANTOPRAZOLE 40MG TAB (PROTONIX) PO SCH ×2 (08:22→22:35)
[2023-04-11] MEDS: ISOSORBIDE MON. (IMDUR) 30MG XR TAB PO SCH ×2 (08:22→21:00)
[2023-04-11] MEDS: RANOLAZINE 500MG ER TAB PO SCH ×2 (08:22→21:00)
[2023-04-11] MEDS: GABAPENTIN 300 MG CAP PO SCH ×3 (08:22→21:00)
[2023-04-11] MEDS: METOPROLOL SUCC (TopROL XL) 100MG *XL* TAB PO SCH (08:23)
[2023-04-11] MEDS: traMADol 50 MG TAB PO PRN (10:17)
[2023-04-11] MEDS: LIDOCAINE 5% (LIDODERM) PATCH TD SCH (11:42)
[2023-04-11 14:00] VITALS: BP 140/68; TEMP 97.7; O2SAT 95
[2023-04-11 16:43] VITALS: BP_SYST 147; BP_SYST 162; BP_SYST 97; BP_DIAS 63; BP_DIAS 70; BP_DIAS 74
[2023-04-11 20:00] VITALS: BP 122/60; TEMP 96.5; O2SAT 98
[2023-04-11] MEDS: ATORVASTATIN 20 MG TAB PO SCH (21:00)
[2023-04-11] MEDS: MONTELUKAST 10 MG TAB PO SCH (21:00)
[2023-04-11] MEDS: LORATADINE 10 MG TAB PO SCH (21:00)
[2023-04-11 21:30] VITALS: BP 127/58; TEMP 97.8; O2SAT 96
[2023-04-11] MEDS ORDERED: DEXTROSE 50% 50ML SYRINGE As Ordered ONE (21:31)
[2023-04-11] MEDS: RIVAROXABAN 15MG TAB (XARELTO) PO SCH (22:35)
[2023-04-12] VITALS (10 sets, daily range): BP systolic 117–204; BP diastolic 53–108; TEMP 97.7–103; O2SAT 93–100
[2023-04-12] MEDS: ONDANSETRON 4MG 2ML VIAL IV SCH ×3 (05:21→17:17)
[2023-04-12] MEDS: LEVOTHYROXINE 88MCG TABLET (0.088 MG) PO SCH (05:21)
[2023-04-12 06:28] LABS: BASO % 0.4 % (0.0-1.0); EOS % 0.4 % (0.0-3.0); HEMATOCRIT 28.6 % (36.0-47.0); LYMPH % 13.4 % (24.0-44.0); MEAN CORPUSCULAR HEMOGLOBIN 27.7 pg (27.0-33.0); MEAN CORPUSCULAR HGB CONC 31.5 g/dl (32.0-36.5); MONO # 0.6 10^3/uL (0.0-0.8); MONO % 8.5 % (2.0-8.0); NEUTROPHILS # 5.5 10^3/uL (1.5-8.5); NEUTROPHILS % 76.5 % (36.0-66.0); PLATELET COUNT, AUTOMATED 172 10^3/uL (150-450); RED BLOOD COUNT 3.25 10^6/uL (4.00-5.40); WHITE BLOOD COUNT 7.2 10^3/uL (4.0-10.0)
[2023-04-12 06:52] LABS: CALCIUM LEVEL 8.2 MG/DL (8.3-10.6); GLOMERULAR FILTRATION RATE 56.4 (>32); POTASSIUM SERUM 4.8 MMOL/L (3.5-5.1)
[2023-04-12] MEDS: INSULIN LISPRO (NovoLOG) PER UNIT SC SCH ×4 (07:30→20:29)
[2023-04-12] MEDS: SYMBICORT 160/4.5MCG INHALER 6GM INH SCH ×2 (07:57→21:34)
[2023-04-12] MEDS: TIOTROPIUM INHALER/CAPSULE (SPIRIVA) INH SCH (07:57)
[2023-04-12] MEDS: LIDOCAINE 5% (LIDODERM) PATCH TD SCH (08:46)
[2023-04-12] MEDS: RANOLAZINE 500MG ER TAB PO SCH ×2 (08:47→21:00)
[2023-04-12] MEDS: GABAPENTIN 300 MG CAP PO SCH ×3 (08:47→20:17)
[2023-04-12] MEDS: ISOSORBIDE MON. (IMDUR) 30MG XR TAB PO SCH ×2 (08:48→20:17)
[2023-04-12] MEDS: ENTRESTO 24-26MG TABLET (SACUBITRIL/VALSARTAN) PO SCH ×2 (08:48→21:25)
[2023-04-12] MEDS: ASPIRIN 81MG ENTERIC TABLET PO SCH (08:48)
[2023-04-12] MEDS: METOPROLOL SUCC (TopROL XL) 100MG *XL* TAB PO SCH (08:48)
[2023-04-12] MEDS: PANTOPRAZOLE 40MG TAB (PROTONIX) PO SCH ×2 (08:48→20:17)
[2023-04-12] MEDS: ACETAMINOPHEN TAB 650MG DOSE (2X325MG) PO PRN (08:49)
[2023-04-12] MEDS: traMADol 50 MG TAB PO PRN (17:22)
[2023-04-12] MEDS: NITROGLYCERIN 0.4MG SUBL TABLET SL PRN ×2 (18:07→18:18)
[2023-04-12] MEDS ORDERED: MORPHINE 2 MG/ML 1ML VIAL As Ordered ONE (18:14)
[2023-04-12] MEDS ORDERED: MORPHINE 2 MG/ML 1ML VIAL IV ONE ×2 (18:15→18:55)
[2023-04-12] MEDS ORDERED: ONDANSETRON 4MG 2ML VIAL IV ONE (18:15)
[2023-04-12] MEDS ORDERED: SODIUM CHLORIDE 0.9% 1000ML IV ONE (18:40)
[2023-04-12] MEDS: ACETAMINOPHEN 650MG SUPP PR PRN (18:45)
[2023-04-12 19:41] LABS: HEMATOCRIT 32.2 % (36.0-47.0); HEMOGLOBIN 10.1 g/dl (12.0-15.5); MEAN CORPUSCULAR HEMOGLOBIN 28.2 pg (27.0-33.0); MEAN CORPUSCULAR HGB CONC 31.4 g/dl (32.0-36.5); MEAN CORPUSCULAR VOLUME 89.9 fl (80.0-96.0); PLATELET COUNT, AUTOMATED 126 10^3/uL (150-450); RED BLOOD COUNT 3.58 10^6/uL (4.00-5.40); WHITE BLOOD COUNT 8.9 10^3/uL (4.0-10.0)
[2023-04-12 20:00] LABS: CALCIUM LEVEL 8.1 MG/DL (8.3-10.6); CREATININE FOR GFR 1.01 MG/DL (0.55-1.30); GLOMERULAR FILTRATION RATE 55.7 (>32); POTASSIUM SERUM 4.5 MMOL/L (3.5-5.1)
[2023-04-12] MEDS: PIPERACILLIN/TAZOBACTAM SOD 3.375 GM in D5W MINI-BAG PLUS 50 ML IV SCH (20:16)
[2023-04-12] MEDS: RIVAROXABAN 15MG TAB (XARELTO) PO SCH (20:17)
[2023-04-12] MEDS: MONTELUKAST 10 MG TAB PO SCH (20:17)
[2023-04-12] MEDS: LORATADINE 10 MG TAB PO SCH (20:17)
[2023-04-12] MEDS: ATORVASTATIN 20 MG TAB PO SCH (21:25)
[2023-04-12] MEDS ORDERED: VANCOMYCIN HCL 750 MG, VIAL MATE ADAPTER 1 EACH in D5W 250 ML IV ONE (22:00)
[2023-04-12] MEDS ORDERED: VANCOMYCIN HCL 500 MG in D5W MINI-BAG PLUS 100 ML IV ONE (23:00)
[2023-04-13] VITALS (7 sets, daily range): BP systolic 127–195; BP diastolic 59–87; TEMP 100.2–102.2; O2SAT 91–98
[2023-04-13] MEDS: PIPERACILLIN/TAZOBACTAM SOD 3.375 GM in D5W MINI-BAG PLUS 50 ML IV SCH ×4 (02:02→20:15)
[2023-04-13] MEDS: LEVOTHYROXINE 88MCG TABLET (0.088 MG) PO SCH (05:07)
[2023-04-13] MEDS: ACETAMINOPHEN 650MG SUPP PR PRN ×3 (05:07→20:25)
[2023-04-13 05:43] LABS: BASO % 0.2 % (0.0-1.0); EOS # 0.1 10^3/uL (0.0-0.5); EOS % 0.9 % (0.0-3.0); HEMATOCRIT 27.8 % (36.0-47.0); HEMOGLOBIN 8.9 g/dl (12.0-15.5); LYMPH # 1.4 10^3/uL (1.5-5.0); LYMPH % 14.4 % (24.0-44.0); MEAN CORPUSCULAR HEMOGLOBIN 28.1 pg (27.0-33.0); MEAN CORPUSCULAR VOLUME 87.7 fl (80.0-96.0); MONO # 1.2 10^3/uL (0.0-0.8); MONO % 12.5 % (2.0-8.0); NEUTROPHILS # 7.1 10^3/uL (1.5-8.5); NEUTROPHILS % 71.1 % (36.0-66.0); PLATELET COUNT, AUTOMATED 177 10^3/uL (150-450); RED BLOOD COUNT 3.17 10^6/uL (4.00-5.40)
[2023-04-13 06:10] LABS: CALCIUM LEVEL 8.9 MG/DL (8.3-10.6); CREATININE FOR GFR 1.03 MG/DL (0.55-1.30); GLOMERULAR FILTRATION RATE 54.5 (>32); POTASSIUM SERUM 5.4 MMOL/L (3.5-5.1)
[2023-04-13] MEDS: INSULIN LISPRO (NovoLOG) PER UNIT SC SCH ×4 (08:22→20:17)
[2023-04-13] MEDS: TIOTROPIUM INHALER/CAPSULE (SPIRIVA) INH SCH (08:32)
[2023-04-13] MEDS: SYMBICORT 160/4.5MCG INHALER 6GM INH SCH ×2 (08:32→20:44)
[2023-04-13] MEDS: LIDOCAINE 5% (LIDODERM) PATCH TD SCH (09:45)
[2023-04-13] MEDS: ENTRESTO 24-26MG TABLET (SACUBITRIL/VALSARTAN) PO SCH ×2 (09:45→20:15)
[2023-04-13] MEDS: GABAPENTIN 300 MG CAP PO SCH ×3 (09:45→20:16)
[2023-04-13] MEDS: ASPIRIN 81MG ENTERIC TABLET PO SCH (09:45)
[2023-04-13] MEDS: RANOLAZINE 500MG ER TAB PO SCH ×2 (09:45→20:16)
[2023-04-13] MEDS: PANTOPRAZOLE 40MG TAB (PROTONIX) PO SCH ×2 (09:45→20:16)
[2023-04-13] MEDS: ISOSORBIDE MON. (IMDUR) 30MG XR TAB PO SCH ×2 (09:45→20:16)
[2023-04-13] MEDS: METOPROLOL SUCC (TopROL XL) 100MG *XL* TAB PO SCH (09:46)
[2023-04-13] MEDS: VANCOMYCIN HCL 1,000 MG, VIAL MATE ADAPTER 1 EACH in D5W 250 ML IV SCH (10:09)
[2023-04-13 11:22] LABS: C REACTIVE PROTEIN QUANTITATIV 10.5 MG/DL (<1.0)
[2023-04-13] MEDS: traMADol 50 MG TAB PO PRN (11:27)
[2023-04-13 11:37] LABS: URIC ACID 3.2 MG/DL (3.1-7.8)
[2023-04-13 19:01] LABS: HEMATOCRIT 28.9 % (36.0-47.0); HEMOGLOBIN 9.1 g/dl (12.0-15.5); MEAN CORPUSCULAR HEMOGLOBIN 27.8 pg (27.0-33.0); MEAN CORPUSCULAR HGB CONC 31.5 g/dl (32.0-36.5); MEAN CORPUSCULAR VOLUME 88.4 fl (80.0-96.0); PLATELET COUNT, AUTOMATED 180 10^3/uL (150-450); RED BLOOD COUNT 3.27 10^6/uL (4.00-5.40); WHITE BLOOD COUNT 9.1 10^3/uL (4.0-10.0)
[2023-04-13 19:13] LABS: ALKALINE PHOSPHATASE 87 U/L (46-116); ALT/SGPT < 9 U/L (7.0-40); AST/SGOT 19 U/L (<34); BILIRUBIN,TOTAL 1.4 MG/DL (0.3-1.2); BLOOD UREA NITROGEN 15 MG/DL (9-23); CALCIUM LEVEL 8.2 MG/DL (8.3-10.6); CARBON DIOXIDE LEVEL 29 MMOL/L (20-31); CHLORIDE LEVEL 102 MMOL/L (98-107); CREATININE FOR GFR 1.03 MG/DL (0.55-1.30); GLOMERULAR FILTRATION RATE 54.5 (>32); GLUCOSE, FASTING 95 MG/DL (74-106); POTASSIUM SERUM 4.1 MMOL/L (3.5-5.1); SODIUM LEVEL 134 MMOL/L (136-145)
[2023-04-13] MEDS: MONTELUKAST 10 MG TAB PO SCH (20:16)
[2023-04-13] MEDS: RIVAROXABAN 15MG TAB (XARELTO) PO SCH (20:16)
[2023-04-13] MEDS: LORATADINE 10 MG TAB PO SCH (20:16)
[2023-04-13] MEDS: ATORVASTATIN 20 MG TAB PO SCH (20:17)
[2023-04-13] MEDS: ONDANSETRON 4MG 2ML VIAL IV PRN (20:25)
[2023-04-14] VITALS (25 sets, daily range): BP systolic 117–217; BP diastolic 56–112; TEMP 99.5–102; O2SAT 89–100
[2023-04-14] MEDS: PIPERACILLIN/TAZOBACTAM SOD 3.375 GM in D5W MINI-BAG PLUS 50 ML IV SCH ×4 (02:21→20:00)
[2023-04-14 05:12] LABS: HEMATOCRIT 23.6 % (36.0-47.0); HEMOGLOBIN 7.6 g/dl (12.0-15.5); MEAN CORPUSCULAR HEMOGLOBIN 27.7 pg (27.0-33.0); MEAN CORPUSCULAR HGB CONC 32.2 g/dl (32.0-36.5); MEAN CORPUSCULAR VOLUME 86.1 fl (80.0-96.0); PLATELET COUNT, AUTOMATED 149 10^3/uL (150-450); RED BLOOD COUNT 2.74 10^6/uL (4.00-5.40)
[2023-04-14] MEDS: LEVOTHYROXINE 88MCG TABLET (0.088 MG) PO SCH (05:22)
[2023-04-14 07:59] LABS: ALBUMIN 2.5 G/DL (3.2-5.2); ALKALINE PHOSPHATASE 72 U/L (46-116); ALT/SGPT < 9 U/L (7.0-40); AST/SGOT 12 U/L (<34); BILIRUBIN,TOTAL 1.5 MG/DL (0.3-1.2); BLOOD UREA NITROGEN 15 MG/DL (9-23); CALCIUM LEVEL 8.1 MG/DL (8.3-10.6); CARBON DIOXIDE LEVEL 28 MMOL/L (20-31); CHLORIDE LEVEL 103 MMOL/L (98-107); CREATININE FOR GFR 1.08 MG/DL (0.55-1.30); GLOMERULAR FILTRATION RATE 51.6 (>32); GLUCOSE, FASTING 133 MG/DL (74-106); POTASSIUM SERUM 4.4 MMOL/L (3.5-5.1); SODIUM LEVEL 134 MMOL/L (136-145); TOTAL PROTEIN 5.5 G/DL (5.7-8.2)
[2023-04-14] MEDS: SYMBICORT 160/4.5MCG INHALER 6GM INH SCH ×2 (08:25→19:28)
[2023-04-14] MEDS: TIOTROPIUM INHALER/CAPSULE (SPIRIVA) INH SCH (08:25)
[2023-04-14] MEDS: INSULIN LISPRO (NovoLOG) PER UNIT SC SCH ×4 (08:41→21:00)
[2023-04-14] MEDS: ENTRESTO 24-26MG TABLET (SACUBITRIL/VALSARTAN) PO SCH ×2 (08:54→20:32)
[2023-04-14] MEDS: ISOSORBIDE MON. (IMDUR) 30MG XR TAB PO SCH ×2 (08:54→20:30)
[2023-04-14] MEDS: METOPROLOL SUCC (TopROL XL) 100MG *XL* TAB PO SCH (08:54)
[2023-04-14] MEDS: GABAPENTIN 300 MG CAP PO SCH ×3 (08:54→20:32)
[2023-04-14] MEDS: PANTOPRAZOLE 40MG TAB (PROTONIX) PO SCH ×2 (08:54→20:31)
[2023-04-14] MEDS: ASPIRIN 81MG ENTERIC TABLET PO SCH (08:55)
[2023-04-14] MEDS: RANOLAZINE 500MG ER TAB PO SCH ×2 (08:55→20:35)
[2023-04-14] MEDS: ACETAMINOPHEN 650MG SUPP PR PRN ×2 (08:56→20:32)
[2023-04-14] MEDS: LIDOCAINE 5% (LIDODERM) PATCH TD SCH (09:37)
[2023-04-14] MEDS: ONDANSETRON 4MG 2ML VIAL IV PRN (10:15)
[2023-04-14] MEDS: VANCOMYCIN HCL 1,000 MG, VIAL MATE ADAPTER 1 EACH in D5W 250 ML IV SCH (10:19)
[2023-04-14] MEDS ORDERED: FUROSEMIDE 40MG/4ML VIAL IV ONE (17:35)
[2023-04-14] MEDS: NITROGLYCERIN 2% OINT 1 GM *U/D* PKT TOP SCH (17:48)
[2023-04-14] MEDS: ATORVASTATIN 20 MG TAB PO SCH (20:30)
[2023-04-14] MEDS: MONTELUKAST 10 MG TAB PO SCH (20:32)
[2023-04-14] MEDS: LORATADINE 10 MG TAB PO SCH (20:32)
[2023-04-14] MEDS: RIVAROXABAN 15MG TAB (XARELTO) PO SCH (20:35)
[2023-04-14] MEDS ORDERED: PILL CUTTER 1 EACH XX PRN (21:35)
[2023-04-14] MEDS ORDERED: ISOSORBIDE MONONITRATE 10MG TABLET PO ONE (22:00)
[2023-04-15] VITALS: BP 135/69; TEMP 101.1; TEMP 98.8; O2SAT 95
[2023-04-15] MEDS: PIPERACILLIN/TAZOBACTAM SOD 3.375 GM in D5W MINI-BAG PLUS 50 ML IV SCH ×4 (01:01→19:54)
[2023-04-15] MEDS ORDERED: ACETAMINOPHEN TAB 650MG DOSE (2X325MG) PO ONE (02:00)
[2023-04-15 04:00] VITALS: BP 146/72; TEMP 99.6; O2SAT 96
[2023-04-15] MEDS: LEVOTHYROXINE 88MCG TABLET (0.088 MG) PO SCH (05:17)
[2023-04-15] MEDS: NITROGLYCERIN 2% OINT 1 GM *U/D* PKT TOP SCH ×5 (05:17→23:56)
[2023-04-15 06:06] LABS: HEMATOCRIT 29.2 % (36.0-47.0); MEAN CORPUSCULAR HEMOGLOBIN 29.1 pg (27.0-33.0); MEAN CORPUSCULAR HGB CONC 33.9 g/dl (32.0-36.5); MEAN CORPUSCULAR VOLUME 85.9 fl (80.0-96.0); PLATELET COUNT, AUTOMATED 169 10^3/uL (150-450); WHITE BLOOD COUNT 7.7 10^3/uL (4.0-10.0)
[2023-04-15 06:14] LABS: HEMOGLOBIN 9.9 g/dl (12.0-15.5)
[2023-04-15 06:55] LABS: ALBUMIN 2.3 G/DL (3.2-5.2); BILIRUBIN,TOTAL 2.3 MG/DL (0.3-1.2); CALCIUM LEVEL 8.5 MG/DL (8.3-10.6); CREATININE FOR GFR 1.11 MG/DL (0.55-1.30); MAGNESIUM LEVEL 1.7 MG/DL (1.8-2.4); POTASSIUM SERUM 3.5 MMOL/L (3.5-5.1)
[2023-04-15 08:00] VITALS: BP 157/85; TEMP 99.2; O2SAT 90
[2023-04-15] MEDS: SYMBICORT 160/4.5MCG INHALER 6GM INH SCH ×2 (08:02→19:38)
[2023-04-15] MEDS: TIOTROPIUM INHALER/CAPSULE (SPIRIVA) INH SCH (08:02)
[2023-04-15] MEDS: INSULIN LISPRO (NovoLOG) PER UNIT SC SCH ×4 (08:07→20:50)
[2023-04-15] MEDS: ASPIRIN 81MG ENTERIC TABLET PO SCH (08:08)
[2023-04-15] MEDS: PANTOPRAZOLE 40MG TAB (PROTONIX) PO SCH ×2 (08:08→20:55)
[2023-04-15] MEDS: ISOSORBIDE MON. (IMDUR) 30MG XR TAB PO SCH ×2 (08:08→17:01)
[2023-04-15] MEDS: ENTRESTO 24-26MG TABLET (SACUBITRIL/VALSARTAN) PO SCH ×2 (08:09→20:56)
[2023-04-15] MEDS: GABAPENTIN 300 MG CAP PO SCH ×3 (08:09→20:55)
[2023-04-15] MEDS: LIDOCAINE 5% (LIDODERM) PATCH TD SCH (08:09)
[2023-04-15] MEDS: RANOLAZINE 500MG ER TAB PO SCH ×2 (08:09→20:56)
[2023-04-15] MEDS: METOPROLOL SUCC (TopROL XL) 100MG *XL* TAB PO SCH (08:09)
[2023-04-15] MEDS: ONDANSETRON 4MG 2ML VIAL IV PRN (10:05)
[2023-04-15] MEDS: VANCOMYCIN HCL 1,000 MG, VIAL MATE ADAPTER 1 EACH in D5W 250 ML IV SCH (10:06)
[2023-04-15 12:00] VITALS: BP 149/72; TEMP 99.2; O2SAT 94
[2023-04-15] MEDS ORDERED: VANCOMYCIN HCL 500 MG in D5W MINI-BAG PLUS 100 ML IV ONE (12:00)
[2023-04-15] MEDS: traMADol 50 MG TAB PO PRN ×2 (12:19→19:54)
[2023-04-15 16:00] VITALS: BP 162/75; TEMP 99.5; O2SAT 93
[2023-04-15] MEDS ORDERED: ACETAMINOPHEN TAB 650MG DOSE (2X325MG) PO PRN (19:00)
[2023-04-15 20:00] VITALS: BP 162/79; TEMP 99.3; O2SAT 94
[2023-04-15] MEDS: RIVAROXABAN 15MG TAB (XARELTO) PO SCH (20:55)
[2023-04-15] MEDS: ATORVASTATIN 20 MG TAB PO SCH (20:55)
[2023-04-15] MEDS: LORATADINE 10 MG TAB PO SCH (20:55)
[2023-04-15] MEDS: MONTELUKAST 10 MG TAB PO SCH (20:55)
[2023-04-16] VITALS (10 sets, daily range): BP systolic 140–190; BP diastolic 72–98; TEMP 97.9–99.1; O2SAT 91–95
[2023-04-16] MEDS: PIPERACILLIN/TAZOBACTAM SOD 3.375 GM in D5W MINI-BAG PLUS 50 ML IV SCH ×3 (01:49→14:41)
[2023-04-16 04:59] LABS: HEMATOCRIT 29.8 % (36.0-47.0); MEAN CORPUSCULAR HEMOGLOBIN 28.7 pg (27.0-33.0); MEAN CORPUSCULAR HGB CONC 33.6 g/dl (32.0-36.5); MEAN CORPUSCULAR VOLUME 85.4 fl (80.0-96.0); PLATELET COUNT, AUTOMATED 209 10^3/uL (150-450); RED BLOOD COUNT 3.49 10^6/uL (4.00-5.40); WHITE BLOOD COUNT 5.4 10^3/uL (4.0-10.0)
[2023-04-16 05:26] LABS: ALBUMIN 2.2 G/DL (3.2-5.2); BILIRUBIN,TOTAL 1.2 MG/DL (0.3-1.2); CALCIUM LEVEL 8.1 MG/DL (8.3-10.6); GLOMERULAR FILTRATION RATE 56.4 (>32); MAGNESIUM LEVEL 1.8 MG/DL (1.8-2.4); POTASSIUM SERUM 3.8 MMOL/L (3.5-5.1)
[2023-04-16] MEDS: LEVOTHYROXINE 88MCG TABLET (0.088 MG) PO SCH (05:59)
[2023-04-16] MEDS: NITROGLYCERIN 2% OINT 1 GM *U/D* PKT TOP SCH ×2 (06:00→11:45)
[2023-04-16] MEDS: SYMBICORT 160/4.5MCG INHALER 6GM INH SCH ×2 (07:20→20:35)
[2023-04-16] MEDS: TIOTROPIUM INHALER/CAPSULE (SPIRIVA) INH SCH (07:20)
[2023-04-16] MEDS: ASPIRIN 81MG ENTERIC TABLET PO SCH (08:20)
[2023-04-16] MEDS: RANOLAZINE 500MG ER TAB PO SCH ×2 (08:20→20:14)
[2023-04-16] MEDS: PANTOPRAZOLE 40MG TAB (PROTONIX) PO SCH ×2 (08:20→20:15)
[2023-04-16] MEDS: ONDANSETRON 4MG 2ML VIAL IV PRN ×2 (08:20→20:24)
[2023-04-16] MEDS: INSULIN LISPRO (NovoLOG) PER UNIT SC SCH ×4 (08:22→20:16)
[2023-04-16] MEDS: GABAPENTIN 300 MG CAP PO SCH ×3 (08:23→20:15)
[2023-04-16] MEDS: LIDOCAINE 5% (LIDODERM) PATCH TD SCH (08:25)
[2023-04-16] MEDS: METOPROLOL SUCC (TopROL XL) 100MG *XL* TAB PO SCH (08:25)
[2023-04-16] MEDS: ENTRESTO 24-26MG TABLET (SACUBITRIL/VALSARTAN) PO SCH ×2 (08:26→20:14)
[2023-04-16] MEDS: ISOSORBIDE MON. (IMDUR) 30MG XR TAB PO SCH ×2 (08:27→17:41)
[2023-04-16] MEDS: VANCOMYCIN HCL 1,000 MG, VIAL MATE ADAPTER 1 EACH in D5W 250 ML IV SCH (10:37)
[2023-04-16] MEDS ORDERED: VANCOMYCIN HCL 500 MG in D5W MINI-BAG PLUS 100 ML IV SCH (11:00)
[2023-04-16] MEDS: amLODIPine 5 MG TAB PO SCH (14:41)
[2023-04-16] MEDS: FUROSEMIDE 20 MG TAB PO SCH (14:41)
[2023-04-16 15:35] LABS: C REACTIVE PROTEIN QUANTITATIV 12.1 MG/DL (<1.0)
[2023-04-16 15:42] LABS: PROCALCITONIN 0.45 ng/ml
[2023-04-16] MEDS: ATORVASTATIN 20 MG TAB PO SCH (20:14)
[2023-04-16] MEDS: RIVAROXABAN 15MG TAB (XARELTO) PO SCH (20:15)
[2023-04-16] MEDS: LORATADINE 10 MG TAB PO SCH (20:15)
[2023-04-16] MEDS: MONTELUKAST 10 MG TAB PO SCH (20:15)
[2023-04-16] MEDS: DOXYCYCLINE HYCLATE 100MG TABLET PO SCH (20:15)
[2023-04-17 01:15] VITALS: BP 153/68; TEMP 98.1; O2SAT 96
[2023-04-17] MEDS: LEVOTHYROXINE 88MCG TABLET (0.088 MG) PO SCH (05:42)
[2023-04-17 06:00] VITALS: BP 152/70; TEMP 98.1; O2SAT 96
[2023-04-17] MEDS: INSULIN LISPRO (NovoLOG) PER UNIT SC SCH ×4 (07:30→20:47)
[2023-04-17 08:04] LABS: HEMATOCRIT 34.6 % (36.0-47.0); HEMOGLOBIN 11.3 g/dl (12.0-15.5); MEAN CORPUSCULAR HEMOGLOBIN 28.6 pg (27.0-33.0); MEAN CORPUSCULAR HGB CONC 32.7 g/dl (32.0-36.5); MEAN CORPUSCULAR VOLUME 87.6 fl (80.0-96.0); PLATELET COUNT, AUTOMATED 226 10^3/uL (150-450); RED BLOOD COUNT 3.95 10^6/uL (4.00-5.40); WHITE BLOOD COUNT 5.3 10^3/uL (4.0-10.0)
[2023-04-17] MEDS: METOPROLOL SUCC (TopROL XL) 100MG *XL* TAB PO SCH (08:06)
[2023-04-17] MEDS: amLODIPine 5 MG TAB PO SCH (08:06)
[2023-04-17] MEDS: ASPIRIN 81MG ENTERIC TABLET PO SCH (08:06)
[2023-04-17] MEDS: RANOLAZINE 500MG ER TAB PO SCH ×2 (08:06→20:46)
[2023-04-17] MEDS: DOXYCYCLINE HYCLATE 100MG TABLET PO SCH ×2 (08:06→20:45)
[2023-04-17] MEDS: ISOSORBIDE MON. (IMDUR) 30MG XR TAB PO SCH ×2 (08:06→17:16)
[2023-04-17] MEDS: GABAPENTIN 300 MG CAP PO SCH ×3 (08:06→20:45)
[2023-04-17] MEDS: ENTRESTO 24-26MG TABLET (SACUBITRIL/VALSARTAN) PO SCH ×2 (08:06→20:45)
[2023-04-17] MEDS: LIDOCAINE 5% (LIDODERM) PATCH TD SCH (08:07)
[2023-04-17] MEDS: FUROSEMIDE 20 MG TAB PO SCH (08:07)
[2023-04-17] MEDS: PANTOPRAZOLE 40MG TAB (PROTONIX) PO SCH ×2 (08:07→20:45)
[2023-04-17 09:01] LABS: ALBUMIN 2.6 G/DL (3.2-5.2); BILIRUBIN,TOTAL 0.8 MG/DL (0.3-1.2); CALCIUM LEVEL 8.4 MG/DL (8.3-10.6); CREATININE FOR GFR 0.96 MG/DL (0.55-1.30); GLOMERULAR FILTRATION RATE 59.1 (>32); MAGNESIUM LEVEL 1.7 MG/DL (1.8-2.4); POTASSIUM SERUM 3.8 MMOL/L (3.5-5.1); TOTAL PROTEIN 5.6 G/DL (5.7-8.2)
[2023-04-17] MEDS: SYMBICORT 160/4.5MCG INHALER 6GM INH SCH ×2 (11:47→21:13)
[2023-04-17] MEDS: TIOTROPIUM INHALER/CAPSULE (SPIRIVA) INH SCH (11:47)
[2023-04-17 14:00] VITALS: BP 150/68; TEMP 97.5; O2SAT 92
[2023-04-17] MEDS: LORATADINE 10 MG TAB PO SCH (20:45)
[2023-04-17] MEDS: MONTELUKAST 10 MG TAB PO SCH (20:45)
[2023-04-17] MEDS: ATORVASTATIN 20 MG TAB PO SCH (20:46)
[2023-04-17] MEDS: traMADol 50 MG TAB PO PRN (20:46)
[2023-04-17] MEDS: RIVAROXABAN 15MG TAB (XARELTO) PO SCH (20:46)
[2023-04-17] MEDS ORDERED: BISACODYL 5MG TAB PO PRN (21:00)
[2023-04-17] MEDS: DOCUSATE SODIUM 100MG CAPSULE PO SCH (21:48)
[2023-04-17 22:00] VITALS: BP 152/68; TEMP 98.1; O2SAT 94
[2023-04-18] MEDS: LEVOTHYROXINE 88MCG TABLET (0.088 MG) PO SCH (05:35)
[2023-04-18 06:00] VITALS: BP 152/69; TEMP 98.2; O2SAT 95
[2023-04-18] MEDS: INSULIN LISPRO (NovoLOG) PER UNIT SC SCH ×4 (07:30→21:00)
[2023-04-18] MEDS: ONDANSETRON 4MG 2ML VIAL IV PRN (07:41)
[2023-04-18] MEDS ORDERED: ONDANSETRON 4MG ORAL DISINTEGRATING TAB PO PRN (07:55)
[2023-04-18 07:57] LABS: HEMATOCRIT 35.3 % (36.0-47.0); HEMOGLOBIN 11.6 g/dl (12.0-15.5); MEAN CORPUSCULAR HEMOGLOBIN 28.9 pg (27.0-33.0); MEAN CORPUSCULAR HGB CONC 32.9 g/dl (32.0-36.5); PLATELET COUNT, AUTOMATED 265 10^3/uL (150-450); RED BLOOD COUNT 4.01 10^6/uL (4.00-5.40); WHITE BLOOD COUNT 5.5 10^3/uL (4.0-10.0)
[2023-04-18 08:15] LABS: ALBUMIN 2.7 G/DL (3.2-5.2); ALKALINE PHOSPHATASE 90 U/L (46-116); ALT/SGPT 12 U/L (7.0-40); AST/SGOT 15 U/L (<34); BILIRUBIN,TOTAL 0.8 MG/DL (0.3-1.2); BLOOD UREA NITROGEN 13 MG/DL (9-23); CALCIUM LEVEL 8.6 MG/DL (8.3-10.6); CARBON DIOXIDE LEVEL 25 MMOL/L (20-31); CHLORIDE LEVEL 105 MMOL/L (98-107); CREATININE FOR GFR 0.93 MG/DL (0.55-1.30); GLOMERULAR FILTRATION RATE > 60.0 (>32); GLUCOSE, FASTING 118 MG/DL (74-106); MAGNESIUM LEVEL 1.6 MG/DL (1.8-2.4); POTASSIUM SERUM 3.8 MMOL/L (3.5-5.1); SODIUM LEVEL 138 MMOL/L (136-145); TOTAL PROTEIN 5.7 G/DL (5.7-8.2)
[2023-04-18] MEDS: SYMBICORT 160/4.5MCG INHALER 6GM INH SCH ×2 (08:22→20:49)
[2023-04-18] MEDS: TIOTROPIUM INHALER/CAPSULE (SPIRIVA) INH SCH (08:22)
[2023-04-18] MEDS: RANOLAZINE 500MG ER TAB PO SCH ×2 (08:53→20:36)
[2023-04-18] MEDS: MIRALAX *UNIT DOSE* 17GM PACKET PO SCH (08:53)
[2023-04-18] MEDS: LIDOCAINE 5% (LIDODERM) PATCH TD SCH (08:53)
[2023-04-18] MEDS: ENTRESTO 24-26MG TABLET (SACUBITRIL/VALSARTAN) PO SCH ×2 (08:53→20:56)
[2023-04-18] MEDS: ISOSORBIDE MON. (IMDUR) 30MG XR TAB PO SCH ×2 (08:54→17:18)
[2023-04-18] MEDS: ASPIRIN 81MG ENTERIC TABLET PO SCH (08:54)
[2023-04-18] MEDS: METOPROLOL SUCC (TopROL XL) 100MG *XL* TAB PO SCH (08:54)
[2023-04-18] MEDS: DOXYCYCLINE HYCLATE 100MG TABLET PO SCH ×2 (08:54→20:37)
[2023-04-18] MEDS: PANTOPRAZOLE 40MG TAB (PROTONIX) PO SCH ×2 (08:54→20:37)
[2023-04-18] MEDS: DOCUSATE SODIUM 100MG CAPSULE PO SCH ×2 (08:54→20:37)
[2023-04-18] MEDS: GABAPENTIN 300 MG CAP PO SCH ×3 (08:54→20:37)
[2023-04-18] MEDS: FUROSEMIDE 20 MG TAB PO SCH (08:54)
[2023-04-18] MEDS: amLODIPine 5 MG TAB PO SCH (08:55)
[2023-04-18 14:00] VITALS: BP 148/67; TEMP 97.7; O2SAT 94
[2023-04-18] MEDS: RIVAROXABAN 15MG TAB (XARELTO) PO SCH (20:36)
[2023-04-18] MEDS: ATORVASTATIN 20 MG TAB PO SCH (20:36)
[2023-04-18] MEDS: LORATADINE 10 MG TAB PO SCH (20:37)
[2023-04-18] MEDS: MONTELUKAST 10 MG TAB PO SCH (20:37)
[2023-04-18 20:57] VITALS: BP 173/83
[2023-04-18] MEDS ORDERED: SENOKOT S TAB PO SCH (21:00)
[2023-04-18 21:13] VITALS: BP 162/78; TEMP 98.1; O2SAT 96
[2023-04-19] MEDS: LEVOTHYROXINE 88MCG TABLET (0.088 MG) PO SCH (05:12)
[2023-04-19 06:00] VITALS: BP 168/86; TEMP 97.9; O2SAT 95
[2023-04-19] MEDS: TIOTROPIUM INHALER/CAPSULE (SPIRIVA) INH SCH (07:20)
[2023-04-19] MEDS: SYMBICORT 160/4.5MCG INHALER 6GM INH SCH (07:21)
[2023-04-19 07:56] LABS: HEMATOCRIT 36.8 % (36.0-47.0); HEMOGLOBIN 12.2 g/dl (12.0-15.5); MEAN CORPUSCULAR HEMOGLOBIN 28.9 pg (27.0-33.0); MEAN CORPUSCULAR HGB CONC 33.2 g/dl (32.0-36.5); MEAN CORPUSCULAR VOLUME 87.2 fl (80.0-96.0); PLATELET COUNT, AUTOMATED 281 10^3/uL (150-450); RED BLOOD COUNT 4.22 10^6/uL (4.00-5.40); WHITE BLOOD COUNT 6.7 10^3/uL (4.0-10.0)
[2023-04-19 08:23] LABS: ALKALINE PHOSPHATASE 95 U/L (46-116); ALT/SGPT 12 U/L (7.0-40); AST/SGOT 15 U/L (<34); BILIRUBIN,TOTAL 0.7 MG/DL (0.3-1.2); BLOOD UREA NITROGEN 14 MG/DL (9-23); CALCIUM LEVEL 8.9 MG/DL (8.3-10.6); CARBON DIOXIDE LEVEL 26 MMOL/L (20-31); CHLORIDE LEVEL 102 MMOL/L (98-107); CREATININE FOR GFR 0.91 MG/DL (0.55-1.30); GLOMERULAR FILTRATION RATE > 60.0 (>32); GLUCOSE, FASTING 126 MG/DL (74-106); MAGNESIUM LEVEL 1.6 MG/DL (1.8-2.4); POTASSIUM SERUM 3.9 MMOL/L (3.5-5.1); SODIUM LEVEL 137 MMOL/L (136-145)
[2023-04-19] MEDS: DOCUSATE SODIUM 100MG CAPSULE PO SCH (08:46)
[2023-04-19] MEDS: INSULIN LISPRO (NovoLOG) PER UNIT SC SCH ×2 (08:46→12:09)
[2023-04-19] MEDS: MIRALAX *UNIT DOSE* 17GM PACKET PO SCH (08:46)
[2023-04-19 08:47] VITALS: BP 176/92
[2023-04-19] MEDS: ISOSORBIDE MON. (IMDUR) 30MG XR TAB PO SCH (08:47)
[2023-04-19] MEDS: RANOLAZINE 500MG ER TAB PO SCH (08:47)
[2023-04-19] MEDS: FUROSEMIDE 20 MG TAB PO SCH (08:47)
[2023-04-19] MEDS: ENTRESTO 24-26MG TABLET (SACUBITRIL/VALSARTAN) PO SCH (08:47)
[2023-04-19] MEDS: DOXYCYCLINE HYCLATE 100MG TABLET PO SCH (08:47)
[2023-04-19] MEDS: LIDOCAINE 5% (LIDODERM) PATCH TD SCH (08:48)
[2023-04-19] MEDS: GABAPENTIN 300 MG CAP PO SCH (08:48)
[2023-04-19] MEDS: METOPROLOL SUCC (TopROL XL) 100MG *XL* TAB PO SCH (08:48)
[2023-04-19] MEDS: amLODIPine 5 MG TAB PO SCH (08:48)
[2023-04-19] MEDS: PANTOPRAZOLE 40MG TAB (PROTONIX) PO SCH (08:48)
[2023-04-19] MEDS: ASPIRIN 81MG ENTERIC TABLET PO SCH (08:48)
[2023-04-19] MEDS ORDERED: DOXY100T PO (10:31)
[2023-04-19] MEDS ORDERED: METO1TAB33 PO (10:31)
== END 2023-04-19 14:05 | disposition home or self-care (01) | DRG 607 ==
LOC: M ED 14:04 → M ED INP 14:05 → ENRESERV 18:37 → M PCU 20:17 → M MSPAV 04-10 14:17 → M ICU 04-12 18:45 → OBSVTOIN 04-13 10:41 → M MS5PR 04-17 01:07
PROVIDERS: ADMIT Internal Medicine; ATTEND Family Medicine
PROC: 30233N1 Transfusion of Nonautologous Red Blood Cells into Peripheral Vein, Percutaneous Approach (ICD-10-PCS; principal; 2023-04-14)
DX: S30.861A Insect bite (nonvenomous) of abdominal wall, initial encounter (principal); I50.22 Chronic systolic (congestive) heart failure; I48.19 Other persistent atrial fibrillation; N17.9 Acute kidney failure, unspecified; I13.0 Hypertensive heart and chronic kidney disease with heart failure and stage 1 through stage 4 chronic kidney disease, or unspecified chronic kidney disease; I25.119 Atherosclerotic heart disease of native coronary artery with unspecified angina pectoris; Z95.5 Presence of coronary angioplasty implant and graft; E03.9 Hypothyroidism, unspecified; E11.22 Type 2 diabetes mellitus with diabetic chronic kidney disease; E78.5 Hyperlipidemia, unspecified; Z86.718 Personal history of other venous thrombosis and embolism; K21.9 Gastro-esophageal reflux disease without esophagitis; Z95.0 Presence of cardiac pacemaker; Z90.49 Acquired absence of other specified parts of digestive tract; Z90.79 Acquired absence of other genital organ(s); N18.30 Chronic kidney disease, stage 3 unspecified; D64.9 Anemia, unspecified; Z79.82 Long term (current) use of aspirin; Z79.890 Hormone replacement therapy; Z79.899 Other long term (current) drug therapy; Z88.2 Allergy status to sulfonamides; Z88.5 Allergy status to narcotic agent; Z88.8 Allergy status to other drugs, medicaments and biological substances; Z20.822 Contact with and (suspected) exposure to COVID-19; I95.1 Orthostatic hypotension; J44.9 Chronic obstructive pulmonary disease, unspecified; I25.5 Ischemic cardiomyopathy; E11.42 Type 2 diabetes mellitus with diabetic polyneuropathy; M25.512 Pain in left shoulder; R33.9 Retention of urine, unspecified; X58.XXXA Exposure to other specified factors, initial encounter; Y92.9 Unspecified place or not applicable